=== PATIENT | male | born 1950 | race Caucasian/White ===

== ENCOUNTER 2020-09-16 14:15 | Inpatient (IN) ==
[~2020-09-16 14:15] MED LIST: ACETAMINOPHEN 325 MG TABLET PO PRN; ALUMINUM/MAGNES/SIMETH MAX STR 30 ML UDCUP PO PRN; DEXTROSE 50% 25 GM/50 ML VIAL IV PRN; DOCUSATE SODIUM 100 MG CAPSULE PO PRN; GLUCAGON 1 MG VIAL IM PRN; HEPARIN 5,000 UNIT/1 ML VIAL ONE; HEPARIN/NACL 0.9% 2 UNITS/ML 500 ML IV ONE; LIDOCAINE 1% 20 ML VIAL ONE; MAGNESIUM SULF RIDER 2 GM in PREMIX 1 EACH IV PRN; MAGNESIUM SULF RIDER 4 GM in PREMIX 1 EACH IV PRN; MIDAZOLAM 2 MG/2 ML VIAL ONE; MORPHINE 4 MG/1 ML VIAL IV PRN; NITROGLYCERIN DRIP 50 MG/250 ML BOTTLE IV ONE; POTASSIUM CHLORIDE 20 MEQ TABLET PO PRN; VERAPAMIL 5 MG/2 ML VIAL ONE; ZALEPLON 5 MG CAPSULE PO PRN; diphenhydrAMINE CAP 25 MG CAPSULE PO PRN; fentaNYL 100 MCG/2 ML VIAL ONE; hydrALAZINE 20 MG/1 ML VIAL IV PRN
[2020-09-16] MEDS ORDERED: HEPARIN 5,000 UNIT/1 ML VIAL ONE (14:28)
[2020-09-16] MEDS ORDERED: TIROFIBAN 5,000 MCG/100 ML PREMIX IV ONE (14:32)
[2020-09-16] MEDS ORDERED: MIDAZOLAM 2 MG/2 ML VIAL ONE (14:34)
[2020-09-16] MEDS ORDERED: TICAGRELOR 90 MG TABLET ONE (14:59)
[2020-09-16] MEDS ORDERED: oxyCODONE/ACETAMINOPHEN 5-325 MG TABLET PO PRN (15:17)
[2020-09-16] MEDS ORDERED: DEXTROSE 50% 25 GM/50 ML VIAL IV PRN (15:18)
[2020-09-16] MEDS ORDERED: GLUCAGON 1 MG VIAL IM PRN (15:18)
[2020-09-16] MEDS: ONDANSETRON 4 MG/2 ML VIAL IV PRN ×2 (16:14→21:04)
[2020-09-16] MEDS: INSULIN REGULAR 100 UNIT/ML SUBCUT SCH ×2 (16:18→20:47)
[2020-09-16 16:26] LABS: Bilirubin,Urine Negative (Negative); Blood, Urine Negative (Negative); Glucose,Urine (UA) >=500 mg/dL (Negative); Ketones,Urine 80 mg/dL (Negative); Mucus,Urine Occasional /LPF (Occasional); Nitrite,Urine Negative (Negative); Protein,Urine Negative; RBC,Urine 1 /HPF (0-4); Squamous Epithelial Cell,Urine Occasional /HPF (0-10); Urine Appearance CLEAR (Clear); Urine Color Yellow (Yellow); Urine Urobilinogen < 2.0 EU/DL (0.2-1.0); WBC,Urine 2 /HPF (0-6)
[2020-09-16 17:58] LABS: Basophils % 0.1 % (0.0-0.8); Eosinophils % 0.1 % (0.00-10.9); Hematocrit 45.1 VOL% (42.0-52.0); Immature Granulocytes % 0.7 %; Immature Granulocytes Absolute 0.05 #; Lymphocytes # 1.2 10*3/uL (1.4-4.0); Lymphocytes % 15.3 % (21.2-54.2); Mean Corpuscular HGB Conc 35.5 GM/DL (32-36); Mean Platelet Volume 9.9 FL (9.6-12.0); Monocytes % 3.8 % (1.7-12.7); Platelet Count 248 T/CUMM (130-400); Red Blood Count 5.01 MC/CUMM (3.8-5.5); Red Cell Distribution Width 12.1 % (9.3-17.3); White Blood Count 7.7 T/CUMM (4-12)
[2020-09-16 18:17] LABS: Albumin 3.5 G/DL (3.4-5.0); Bilirubin,Total 0.5 MG/DL (0.2-1.0); Calcium 8.9 MG/DL (8.5-10.1); Osmolality,Calculated 282.7 MOS/KG (273-304); Total Protein 7.1 G/DL (6.4-8.3)
[2020-09-16] MEDS: carvediloL 3.125 MG TABLET PO SCH (20:46)
[2020-09-16] MEDS: TICAGRELOR 90 MG TABLET PO SCH (20:46)
[2020-09-16] MEDS: ROSUVASTATIN 20 MG TABLET PO SCH (20:46)
[2020-09-16] MEDS ORDERED: ROSUVASTATIN 20 MG TABLET PO SCH (21:00)
[2020-09-17 04:00] LABS: Basophils % 0.1 % (0.0-0.8); Eosinophils # 0.1 10*3/uL (0.0-0.87); Eosinophils % 0.6 % (0.00-10.9); Hematocrit 41.1 VOL% (42.0-52.0); Hemoglobin 14.4 GM/DL (14.0-18.0); Immature Granulocytes % 0.5 %; Immature Granulocytes Absolute 0.04 #; Lymphocytes # 2.1 10*3/uL (1.4-4.0); Lymphocytes % 24.9 % (21.2-54.2); Mean Corpuscular Volume 90.5 FL (87-102); Mean Platelet Volume 9.9 FL (9.6-12.0); Monocytes % 8.2 % (1.7-12.7); Neutrophils % 65.7 % (38.7-73.9); Platelet Count 239 T/CUMM (130-400); Red Blood Count 4.54 MC/CUMM (3.8-5.5); White Blood Count 8.6 T/CUMM (4-12)
[2020-09-17 04:30] LABS: Albumin 3.1 G/DL (3.4-5.0); Bilirubin,Total 1.6 MG/DL (0.2-1.0); Osmolality,Calculated 280.7 MOS/KG (273-304); Risk Ratio 5.68; Thyroid Stimulating Hormone 0.522 uIU/ml (0.358-3.74); Total Protein 6.7 G/DL (6.4-8.3); VLDL CHOLESTEROL 38.4 MG/DL
[2020-09-17] MEDS ORDERED: HEPARIN/NACL 0.9% 2 UNITS/ML 500 ML IV ONE (07:32)
[2020-09-17] MEDS: INSULIN REGULAR 100 UNIT/ML SUBCUT SCH ×4 (08:50→20:33)
[2020-09-17] MEDS: PANTOPRAZOLE 40 MG TABLET PO SCH (08:52)
[2020-09-17] MEDS: ASPIRIN EC 81 MG TABLET PO SCH (08:52)
[2020-09-17] MEDS: TICAGRELOR 90 MG TABLET PO SCH ×2 (08:52→20:34)
[2020-09-17] MEDS: LOSARTAN 25 MG TABLET PO SCH (08:52)
[2020-09-17] MEDS: carvediloL 3.125 MG TABLET PO SCH ×2 (08:53→20:33)
[2020-09-17] MEDS ORDERED: ENOXAPARIN 40 MG/0.4 ML SYRINGE SUBCUT SCH (11:00)
[2020-09-17] MEDS ORDERED: INFLUENZA VIRUS VACCINE 0.5 ML SYRINGE IM ONE (12:00)
[2020-09-17] MEDS ORDERED: PNEUMOCOCCAL VACCINE (13 VALENT) 0.5 ML SYRINGE IM ONE (12:00)
[2020-09-17] MEDS: ROSUVASTATIN 20 MG TABLET PO SCH (20:33)
[2020-09-18 04:47] LABS: Basophils % 0.4 % (0.0-0.8); Eosinophils # 0.1 10*3/uL (0.0-0.87); Eosinophils % 1.6 % (0.00-10.9); Hematocrit 41.4 VOL% (42.0-52.0); Hemoglobin 14.1 GM/DL (14.0-18.0); Immature Granulocytes % 0.4 %; Immature Granulocytes Absolute 0.03 #; Mean Corpuscular HGB Conc 34.1 GM/DL (32-36); Mean Corpuscular Volume 91.6 FL (87-102); Mean Platelet Volume 10.1 FL (9.6-12.0); Monocytes % 10.7 % (1.7-12.7); Neutrophils % 59.9 % (38.7-73.9); Platelet Count 240 T/CUMM (130-400); Red Blood Count 4.52 MC/CUMM (3.8-5.5); Red Cell Distribution Width 11.9 % (9.3-17.3); White Blood Count 7.6 T/CUMM (4-12)
[2020-09-18 05:05] LABS: Calcium 8.9 MG/DL (8.5-10.1); Osmolality,Calculated 283.4 MOS/KG (273-304)
[2020-09-18] MEDS: INSULIN REGULAR 100 UNIT/ML SUBCUT SCH (08:14)
[2020-09-18] MEDS: PANTOPRAZOLE 40 MG TABLET PO SCH (08:14)
[2020-09-18] MEDS: carvediloL 3.125 MG TABLET PO SCH (08:14)
[2020-09-18] MEDS: LOSARTAN 25 MG TABLET PO SCH (08:14)
[2020-09-18] MEDS: TICAGRELOR 90 MG TABLET PO SCH (08:14)
[2020-09-18] MEDS: ASPIRIN EC 81 MG TABLET PO SCH (08:14)
== END 2020-09-18 09:25 | disposition home or self-care (01) | DRG 247 ==
LOC: N.CC 14:15
PROVIDERS: ADMIT Internal Medicine Cardiovascular Disease; ATTEND Internal Medicine Cardiovascular Disease
PROC: CLCCHCL (ICD-10-PCS; 2020-09-16 14:45)

== ENCOUNTER 2022-09-25 13:43 | Inpatient (IN) ==
[2022-09-25] MEDS ORDERED: SODIUM CHLORIDE 0.9% 1,000 ML IV STA ×2 (14:23→16:40)
[2022-09-25 15:09] LABS: Basophils % 0.2 % (0.0-0.8); Hematocrit 41.7 VOL% (42.0-52.0); Hemoglobin 14.3 GM/DL (14.0-18.0); Immature Granulocytes % 0.6 %; Immature Granulocytes Absolute 0.04 #; Lymphocytes # 0.7 10*3/uL (1.4-4.0); Lymphocytes % 9.8 % (21.2-54.2); Mean Corpuscular HGB Conc 34.3 GM/DL (32-36); Mean Corpuscular Volume 92.5 FL (87-102); Mean Platelet Volume 9.7 FL (9.6-12.0); Monocytes # 0.6 10*3/uL (0.11-0.8); Monocytes % 8.3 % (1.7-12.7); Neutrophils % 81.1 % (38.7-73.9); Platelet Count 188 T/CUMM (130-400); Red Blood Count 4.51 MC/CUMM (3.8-5.5); Red Cell Distribution Width 12.8 % (9.3-17.3); White Blood Count 6.6 T/CUMM (4-12)
[2022-09-25 15:14] LABS: Arterial Base Excess iSTAT -14 MMOL/L (-2.5-2.5); Arterial Bicarbonate iSTAT 9.4 MMOL/L (20-26); Arterial O2 Saturation iSTAT 97 % (95-100); Arterial PCO2 iSTAT 17 MM HG (35-48); Arterial PO2 iSTAT 88 MM HG (80-95); Arterial Total CO2 iSTAT 10 MMO/L (23-27); Arterial pH iSTAT 7.349 (7.35-7.45)
[2022-09-25 15:18] LABS: PT Patient Result 11.5 SECS (10.1-12.1)
[2022-09-25 15:30] LABS: Albumin 3.1 G/DL (3.4-5.0); Bilirubin,Total 0.9 MG/DL (0.20-1.00); Calcium 9.2 MG/DL (8.5-10.1); Osmolality,Calculated 295.5 MOS/KG (273-304); Potassium 4.7 MMOL/L (3.5-5.1)
[2022-09-25 16:09] LABS: Band Neutrophils 30 % (0-10); Lymphocytes 8 % (20-55); Platelet Estimate Normal; Total Cells Counted 100
[2022-09-25] MEDS ORDERED: PIPERACILLIN/TAZOBACTAM 3,375 MG in SODIUM CHLORIDE 0.9% 100 ML IV STA (17:01)
[2022-09-25] MEDS ORDERED: VANCOMYCIN INJ 1,000 MG in SODIUM CHLORIDE 0.9% 250 ML IV STA (17:01)
[2022-09-25] MEDS ORDERED: ETOMIDATE 20 MG/10 ML VIAL IV STA (17:02)
[2022-09-25] MEDS ORDERED: ROCURONIUM 100 MG/10 ML VIAL IV STA (17:02)
[2022-09-25] MEDS ORDERED: LACTATED RINGERS 1,000 ML IV ONE ×2 (17:08→21:40)
[2022-09-25] MEDS ORDERED: ROCURONIUM 50 MG/5 ML VIAL IV ONE (17:44)
[2022-09-25] MEDS ORDERED: propofoL 200 MG/20 ML VIAL IV ONE (17:44)
[2022-09-25] MEDS ORDERED: LIDOCAINE 2% 5 ML VIAL ONE (17:44)
[2022-09-25] MEDS ORDERED: SEVOFLURANE 1 UNIT/15 MINUTE INH ONE ×5 (17:44→19:19)
[2022-09-25] MEDS ORDERED: SUCCINYLCHOLINE 200 MG/10 ML VIAL ONE (17:44)
[2022-09-25] MEDS ORDERED: fentaNYL 100 MCG/2 ML VIAL ONE (17:45)
[2022-09-25] MEDS ORDERED: MIDAZOLAM 2 MG/2 ML VIAL ONE ×2 (17:45→19:20)
[2022-09-25 18:14] LABS: Arterial Base Excess iSTAT -13 MMOL/L (-2.5-2.5); Arterial Bicarbonate iSTAT 15.6 MMOL/L (20-26); Arterial O2 Saturation iSTAT 100 % (95-100); Arterial PCO2 iSTAT 46 MM HG (35-48); Arterial PO2 iSTAT 335 MM HG (80-95); Arterial Total CO2 iSTAT 17 MMO/L (23-27); Arterial pH iSTAT 7.138 (7.35-7.45)
[2022-09-25] MEDS ORDERED: ALBUMIN 5% 12.5 GM/250 ML VIAL IV ONE (18:37)
[2022-09-25] MEDS ORDERED: LABETALOL 20 MG/4 ML SYRINGE IV ONE (18:50)
[2022-09-25] MEDS ORDERED: LACTATED RINGERS 1,000 ML IV SCH (19:30)
[2022-09-25] MEDS ORDERED: ONDANSETRON 4 MG/2 ML VIAL IV PRN (19:30)
[2022-09-25] MEDS: MIDAZOLAM DRIP 100 MG/100 ML PREMIX IV PRN (19:50)
[2022-09-25 20:18] LABS: Albumin 2.4 G/DL (3.4-5.0); Bilirubin,Total 0.9 MG/DL (0.20-1.00); Calcium 8.3 MG/DL (8.5-10.1); Potassium 4.8 MMOL/L (3.5-5.1)
[2022-09-25 20:38] LABS: Arterial Base Excess iSTAT -8 MMOL/L (-2.5-2.5); Arterial Bicarbonate iSTAT 19.9 MMOL/L (20-26); Arterial O2 Saturation iSTAT 100 % (95-100); Arterial PCO2 iSTAT 49 MM HG (35-48); Arterial PO2 iSTAT 322 MM HG (80-95); Arterial Total CO2 iSTAT 21 MMO/L (23-27); Arterial pH iSTAT 7.213 (7.35-7.45)
[2022-09-25 21:00] LABS: Basophils % 0.6 % (0.0-0.8); Hematocrit 40.8 VOL% (42.0-52.0); Hemoglobin 13.6 GM/DL (14.0-18.0); Immature Granulocytes % 0.1 %; Immature Granulocytes Absolute 0.01 #; Lymphocytes % 14.3 % (21.2-54.2); Mean Corpuscular HGB Conc 33.3 GM/DL (32-36); Mean Corpuscular Volume 95.8 FL (87-102); Mean Platelet Volume 10.3 FL (9.6-12.0); Monocytes # 0.4 10*3/uL (0.11-0.8); Monocytes % 6.4 % (1.7-12.7); Neutrophils % 78.6 % (38.7-73.9); Platelet Count 120 T/CUMM (130-400); Red Blood Count 4.26 MC/CUMM (3.8-5.5); Red Cell Distribution Width 12.9 % (9.3-17.3); White Blood Count 6.7 T/CUMM (4-12)
[2022-09-25] MEDS: VANCOMYCIN INJ 1,500 MG in SODIUM CHLORIDE 0.9% 500 ML IV SCH (21:15)
[2022-09-25] MEDS ORDERED: SODIUM BICARB INJ 100 MEQ in STERILE WATER INJ 1,000 ML IV SCH (21:30)
[2022-09-25] MEDS ORDERED: INSULIN GLARGINE 100 UNIT/ML SUBCUT SCH (21:39)
[2022-09-25 21:41] LABS: Band Neutrophils 27 % (0-10); Lymphocytes 21 % (20-55); Total Cells Counted 100
[2022-09-25 21:42] LABS: Platelet Estimate Decreased
[2022-09-25] MEDS: fentaNYL INJ 1,250 MCG in SODIUM CHLORIDE 0.9% 225 ML IV PRN (22:20)
[2022-09-25] MEDS: INSULIN REGULAR 100 UNIT/ML SUBCUT SCH (22:37)
[2022-09-25 23:38] LABS: Calcium 8.3 MG/DL (8.5-10.1); Osmolality,Calculated 302.5 MOS/KG (273-304); Potassium 4.6 MMOL/L (3.5-5.1)
[2022-09-25 23:41] LABS: ABG Base Excess -8.2 MMOL/L (-2.5-2.5); ABG HCO3 17.9 MMOL/L (20-26); ABG Oxygen Saturation 99.2 % (95-100); ABG PCO2 33.4 MM HG (35-48); ABG PH 7.317 (7.35-7.45); ABG TCO2 15.3 MMOL/L (23-27)
[2022-09-26] MEDS ORDERED: INSULIN REGULAR 100 UNIT/ML SUBCUT SCH
[2022-09-26] MEDS ORDERED: INSULIN REGULAR ** CONC 500 UNIT/ML ** 3 ML VIAL SUBCUT SCH
[2022-09-26] MEDS: PIPERACILLIN/TAZOBACTAM 3,375 MG in SODIUM CHLORIDE 0.9% 100 ML IV SCH ×3 (00:20→18:27)
[2022-09-26] MEDS: INSULIN REGULAR 100 UNIT/ML SUBCUT SCH ×12 (00:21→22:08)
[2022-09-26 03:59] LABS: ABG Base Excess -2.6 MMOL/L (-2.5-2.5); ABG HCO3 22.3 MMOL/L (20-26); ABG Oxygen Saturation 99.6 % (95-100); ABG PCO2 32.1 MM HG (35-48); ABG PH 7.423 (7.35-7.45); ABG TCO2 18.6 MMOL/L (23-27)
[2022-09-26 04:02] LABS: Basophils % 0.5 % (0.0-0.8); Hematocrit 35.2 VOL% (42.0-52.0); Hemoglobin 12.4 GM/DL (14.0-18.0); Immature Granulocytes % 0.5 %; Immature Granulocytes Absolute 0.03 #; Lymphocytes # 0.8 10*3/uL (1.4-4.0); Lymphocytes % 12.4 % (21.2-54.2); Mean Corpuscular HGB Conc 35.2 GM/DL (32-36); Mean Corpuscular Volume 90.5 FL (87-102); Mean Platelet Volume 9.8 FL (9.6-12.0); Monocytes # 0.2 10*3/uL (0.11-0.8); Monocytes % 3.4 % (1.7-12.7); Neutrophils % 83.2 % (38.7-73.9); Platelet Count 161 T/CUMM (130-400); Red Blood Count 3.89 MC/CUMM (3.8-5.5); Red Cell Distribution Width 12.8 % (9.3-17.3); White Blood Count 6.5 T/CUMM (4-12)
[2022-09-26 04:04] LABS: Amorphous Crystals,Urine Few /HPF (Few); Bilirubin,Urine Large mg/dL (Negative); Blood, Urine Trace mg/dL (Negative); Glucose,Urine (UA) 500 mg/dL (Negative); Ketones,Urine 15 mg/dL (Negative); Mucus,Urine Occasional /LPF (Occasional); Nitrite,Urine Negative (Negative); Protein,Urine 30 mg/dL (Negative); Urine Appearance Turbid (Clear); Urine Color Orange (Yellow); Urine Specific Gravity 1.025 (1.001-1.035)
[2022-09-26 04:19] LABS: Barbiturates Screen,Urine Negative (Negative); Benzodiazepines Screen,Urine Positive (Negative); Cannabinoid Screen,Urine Negative (Negative); Opiate Screen,Urine Positive (Negative); Phencyclidine Screen,Urine Negative (Negative)
[2022-09-26 04:25] LABS: Albumin 2.3 G/DL (3.4-5.0); Bilirubin,Total 1.5 MG/DL (0.20-1.00); Calcium 8.4 MG/DL (8.5-10.1); Osmolality,Calculated 299.4 MOS/KG (273-304); Potassium 3.9 MMOL/L (3.5-5.1); Total Protein 5.7 G/DL (6.4-8.2)
[2022-09-26 04:27] LABS: Band Neutrophils 4 % (0-10); Lymphocytes 17 % (20-55); Platelet Estimate Adequate; Total Cells Counted 100
[2022-09-26] MEDS: LACTATED RINGERS 1,000 ML IV SCH ×3 (05:17→21:38)
[2022-09-26] MEDS: INSULIN GLARGINE 100 UNIT/ML SUBCUT SCH (07:08)
[2022-09-26] MEDS ORDERED: PANTOPRAZOLE 40 MG VIAL IV SCH (09:00)
[2022-09-26 10:12] LABS: Calcium 8.7 MG/DL (8.5-10.1); Osmolality,Calculated 293.3 MOS/KG (273-304); Potassium 3.5 MMOL/L (3.5-5.1)
[2022-09-26] MEDS: VANCOMYCIN INJ 1,500 MG in SODIUM CHLORIDE 0.9% 500 ML IV SCH ×2 (11:46→21:20)
[2022-09-26 12:23] LABS: ABG Base Excess 0.6 MMOL/L (-2.5-2.5); ABG Oxygen Saturation 98.4 % (95-100); ABG PH 7.456 (7.35-7.45); ABG TCO2 21.3 MMOL/L (23-27)
[2022-09-26] MEDS: ENOXAPARIN 40 MG/0.4 ML SYRINGE SUBCUT SCH (13:32)
[2022-09-26] MEDS: DIAZEPAM 10 MG/2 ML SYRINGE IV SCH ×2 (14:22→21:19)
[2022-09-26 20:02] LABS: Calcium 8.6 MG/DL (8.5-10.1); Potassium 3.5 MMOL/L (3.5-5.1)
[2022-09-26] MEDS: fentaNYL INJ 1,250 MCG in SODIUM CHLORIDE 0.9% 225 ML IV PRN (20:30)
[2022-09-26] MEDS: PANTOPRAZOLE 40 MG VIAL IV SCH (21:20)
[2022-09-26] MEDS: DEXTROSE 5% 1,000 ML IV SCH (21:38)
[2022-09-27] MEDS: INSULIN REGULAR 100 UNIT/ML SUBCUT SCH ×9 (00:37→20:58)
[2022-09-27] MEDS: PIPERACILLIN/TAZOBACTAM 3,375 MG in SODIUM CHLORIDE 0.9% 100 ML IV SCH ×3 (00:38→18:16)
[2022-09-27] MEDS: DIAZEPAM 10 MG/2 ML SYRINGE IV SCH ×2 (02:17→09:41)
[2022-09-27 04:02] LABS: ABG HCO3 24.5 MMOL/L (20-26); ABG Oxygen Saturation 99.3 % (95-100); ABG PCO2 33.2 MM HG (35-48); ABG PH 7.457 (7.35-7.45); ABG TCO2 21.6 MMOL/L (23-27)
[2022-09-27 04:16] LABS: Calcium 8.1 MG/DL (8.5-10.1); Osmolality,Calculated 292.8 MOS/KG (273-304); Potassium 3.7 MMOL/L (3.5-5.1)
[2022-09-27] MEDS: LACTATED RINGERS 1,000 ML IV SCH ×3 (05:33→21:37)
[2022-09-27] MEDS ORDERED: DIAZEPAM 10 MG/2 ML SYRINGE IV SCH (09:30)
[2022-09-27] MEDS: VANCOMYCIN INJ 1,500 MG in SODIUM CHLORIDE 0.9% 500 ML IV SCH ×2 (09:30→21:29)
[2022-09-27] MEDS: INSULIN GLARGINE 100 UNIT/ML SUBCUT SCH (09:39)
[2022-09-27] MEDS: PANTOPRAZOLE 40 MG VIAL IV SCH ×2 (09:54→21:30)
[2022-09-27 10:33] LABS: Basophils % 0.1 % (0.0-0.8); Eosinophils % 0.5 % (0.00-10.9); Hematocrit 25.6 VOL% (42.0-52.0); Immature Granulocytes % 1.4 %; Immature Granulocytes Absolute 0.12 #; Lymphocytes % 11.4 % (21.2-54.2); Mean Corpuscular HGB Conc 33.6 GM/DL (32-36); Mean Corpuscular Volume 94.8 FL (87-102); Monocytes # 0.4 10*3/uL (0.11-0.8); Neutrophils % 82.6 % (38.7-73.9); Platelet Count 102 T/CUMM (130-400); Red Cell Distribution Width 13.2 % (9.3-17.3); White Blood Count 8.8 T/CUMM (4-12)
[2022-09-27 10:34] LABS: Hemoglobin 8.6 GM/DL (14.0-18.0)
[2022-09-27 10:59] LABS: Band Neutrophils 3 % (0-10); Eosinophils 1 % (0-10); Lymphocytes 10 % (20-55); Total Cells Counted 100
[2022-09-27 11:00] LABS: Microcytosis 1+; Platelet Estimate Adequate
[2022-09-27 16:04] LABS: Basophils % 0.1 % (0.0-0.8); Eosinophils # 0.1 10*3/uL (0.0-0.87); Eosinophils % 0.7 % (0.00-10.9); Hematocrit 24.8 VOL% (42.0-52.0); Hemoglobin 8.4 GM/DL (14.0-18.0); Immature Granulocytes % 0.5 %; Immature Granulocytes Absolute 0.04 #; Lymphocytes # 0.9 10*3/uL (1.4-4.0); Lymphocytes % 9.8 % (21.2-54.2); Mean Corpuscular HGB Conc 33.9 GM/DL (32-36); Mean Corpuscular Volume 95.8 FL (87-102); Mean Platelet Volume 10.2 FL (9.6-12.0); Monocytes # 0.4 10*3/uL (0.11-0.8); Neutrophils % 84.9 % (38.7-73.9); Platelet Count 104 T/CUMM (130-400); Red Blood Count 2.59 MC/CUMM (3.8-5.5); Red Cell Distribution Width 13.2 % (9.3-17.3); White Blood Count 8.7 T/CUMM (4-12)
[2022-09-27] MEDS: MIDAZOLAM DRIP 100 MG/100 ML PREMIX IV PRN (16:20)
[2022-09-27 16:29] LABS: Band Neutrophils 2 % (0-10); Lymphocytes 10 % (20-55); Total Cells Counted 100
[2022-09-27 16:30] LABS: Platelet Estimate Normal
[2022-09-27] MEDS: methylPREDNISolone SOD SUC 40 MG/1 ML VIAL IV SCH (18:20)
[2022-09-27] MEDS: IPRATROPIUM 500 MCG/2.5 ML NEB RESP TX SCH (19:14)
[2022-09-27] MEDS: LEVALBUTEROL 1.25 MG/3 ML NEB RESP TX SCH (19:14)
[2022-09-27] MEDS: DEXTROSE 5% 1,000 ML IV SCH (20:57)
[2022-09-28] MEDS: IPRATROPIUM 500 MCG/2.5 ML NEB RESP TX SCH ×4 (00:03→20:05)
[2022-09-28] MEDS: LEVALBUTEROL 1.25 MG/3 ML NEB RESP TX SCH ×4 (00:03→20:05)
[2022-09-28] MEDS: fentaNYL INJ 1,250 MCG in SODIUM CHLORIDE 0.9% 225 ML IV PRN (00:20)
[2022-09-28] MEDS: INSULIN REGULAR 100 UNIT/ML SUBCUT SCH ×6 (00:46→21:18)
[2022-09-28] MEDS: PIPERACILLIN/TAZOBACTAM 3,375 MG in SODIUM CHLORIDE 0.9% 100 ML IV SCH ×3 (00:47→16:48)
[2022-09-28 03:50] LABS: ABG Base Excess -0.2 MMOL/L (-2.5-2.5); ABG HCO3 24.3 MMOL/L (20-26); ABG Oxygen Saturation 99.2 % (95-100); ABG PCO2 36.7 MM HG (35-48); ABG PH 7.421 (7.35-7.45); ABG TCO2 21.1 MMOL/L (23-27)
[2022-09-28 03:55] LABS: Basophils % 0.1 % (0.0-0.8); Hematocrit 25.2 VOL% (42.0-52.0); Immature Granulocytes % 0.8 %; Immature Granulocytes Absolute 0.06 #; Lymphocytes # 0.5 10*3/uL (1.4-4.0); Lymphocytes % 6.2 % (21.2-54.2); Mean Corpuscular HGB Conc 31.7 GM/DL (32-36); Mean Corpuscular Volume 99.2 FL (87-102); Mean Platelet Volume 10.2 FL (9.6-12.0); Monocytes # 0.2 10*3/uL (0.11-0.8); Monocytes % 2.2 % (1.7-12.7); Neutrophils % 90.7 % (38.7-73.9); Platelet Count 115 T/CUMM (130-400); Red Blood Count 2.54 MC/CUMM (3.8-5.5); Red Cell Distribution Width 13.3 % (9.3-17.3); White Blood Count 7.8 T/CUMM (4-12)
[2022-09-28 04:09] LABS: Calcium 7.7 MG/DL (8.5-10.1); Osmolality,Calculated 295.7 MOS/KG (273-304); Potassium 4.2 MMOL/L (3.5-5.1)
[2022-09-28] MEDS: methylPREDNISolone SOD SUC 40 MG/1 ML VIAL IV SCH ×2 (04:17→16:48)
[2022-09-28 04:20] LABS: Band Neutrophils 2 % (0-10); Lymphocytes 8 % (20-55); Total Cells Counted 100
[2022-09-28 04:21] LABS: Microcytosis 1+; Ovalocytes Slight
[2022-09-28 04:22] LABS: Platelet Estimate Decreased
[2022-09-28] MEDS: LACTATED RINGERS 1,000 ML IV SCH ×3 (05:35→21:19)
[2022-09-28] MEDS: PANTOPRAZOLE 40 MG VIAL IV SCH ×2 (08:32→21:18)
[2022-09-28] MEDS: VANCOMYCIN INJ 1,500 MG in SODIUM CHLORIDE 0.9% 500 ML IV SCH (08:33)
[2022-09-28] MEDS ORDERED: INSULIN GLARGINE 100 UNIT/ML SUBCUT SCH (09:00)
[2022-09-28] MEDS ORDERED: PHENYLEPHRINE DRIP 20 MG/250 ML PREMIX IV ONE (11:18)
[2022-09-28] MEDS ORDERED: MIDAZOLAM 10 MG/2 ML VIAL ONE (11:18)
[2022-09-28] MEDS ORDERED: fentaNYL 250 MCG/5 ML VIAL ONE (11:20)
[2022-09-28] MEDS ORDERED: ROCURONIUM 50 MG/5 ML VIAL IV ONE ×2 (11:20→13:13)
[2022-09-28] MEDS ORDERED: ceFAZolin 1,000 MG VIAL ONE (12:45)
[2022-09-28] MEDS ORDERED: SEVOFLURANE 1 UNIT/15 MINUTE INH ONE ×2 (13:13)
[2022-09-28] MEDS: ENOXAPARIN 40 MG/0.4 ML SYRINGE SUBCUT SCH (14:13)
[2022-09-28 17:01] LABS: Basophils % 0.2 % (0.0-0.8); Hematocrit 26.1 VOL% (42.0-52.0); Hemoglobin 8.3 GM/DL (14.0-18.0); Immature Granulocytes % 0.6 %; Immature Granulocytes Absolute 0.07 #; Lymphocytes # 0.9 10*3/uL (1.4-4.0); Lymphocytes % 7.8 % (21.2-54.2); Mean Corpuscular HGB Conc 31.8 GM/DL (32-36); Mean Corpuscular Volume 98.1 FL (87-102); Mean Platelet Volume 10.5 FL (9.6-12.0); Monocytes # 0.5 10*3/uL (0.11-0.8); Monocytes % 4.5 % (1.7-12.7); Neutrophils % 86.9 % (38.7-73.9); Platelet Count 112 T/CUMM (130-400); Red Blood Count 2.66 MC/CUMM (3.8-5.5); Red Cell Distribution Width 13.2 % (9.3-17.3)
[2022-09-28] MEDS: DEXTROSE 5% 1,000 ML IV SCH (20:37)
[2022-09-28] MEDS: ceFAZolin 2,000 MG/50 ML DUPLEX IV SCH (21:19)
[2022-09-29] MEDS: INSULIN REGULAR 100 UNIT/ML SUBCUT SCH ×7 (00:47→23:08)
[2022-09-29] MEDS: PIPERACILLIN/TAZOBACTAM 3,375 MG in SODIUM CHLORIDE 0.9% 100 ML IV SCH ×3 (00:48→16:49)
[2022-09-29] MEDS: LEVALBUTEROL 1.25 MG/3 ML NEB RESP TX SCH ×5 (01:00→23:56)
[2022-09-29] MEDS: IPRATROPIUM 500 MCG/2.5 ML NEB RESP TX SCH ×5 (01:00→23:56)
[2022-09-29 03:37] LABS: ABG Base Excess 1.3 MMOL/L (-2.5-2.5); ABG HCO3 25.5 MMOL/L (20-26); ABG Oxygen Saturation 96.7 % (95-100); ABG PCO2 36.9 MM HG (35-48); ABG PH 7.441 (7.35-7.45); ABG PO2 89.3 MM HG (80-95); ABG TCO2 21.7 MMOL/L (23-27)
[2022-09-29 03:38] LABS: Basophils % 0.1 % (0.0-0.8); Hematocrit 23.6 VOL% (42.0-52.0); Hemoglobin 7.6 GM/DL (14.0-18.0); Immature Granulocytes % 0.6 %; Immature Granulocytes Absolute 0.05 #; Lymphocytes # 0.5 10*3/uL (1.4-4.0); Lymphocytes % 6.4 % (21.2-54.2); Mean Corpuscular HGB Conc 32.2 GM/DL (32-36); Mean Corpuscular Volume 97.9 FL (87-102); Mean Platelet Volume 10.2 FL (9.6-12.0); Monocytes # 0.4 10*3/uL (0.11-0.8); Monocytes % 4.2 % (1.7-12.7); Neutrophils % 88.7 % (38.7-73.9); Platelet Count 114 T/CUMM (130-400); Red Blood Count 2.41 MC/CUMM (3.8-5.5); Red Cell Distribution Width 13.1 % (9.3-17.3); White Blood Count 8.3 T/CUMM (4-12)
[2022-09-29 03:59] LABS: Calcium 8.4 MG/DL (8.5-10.1); Osmolality,Calculated 304.3 MOS/KG (273-304); Potassium 3.8 MMOL/L (3.5-5.1)
[2022-09-29] MEDS: ceFAZolin 2,000 MG/50 ML DUPLEX IV SCH (04:15)
[2022-09-29] MEDS: methylPREDNISolone SOD SUC 40 MG/1 ML VIAL IV SCH ×2 (04:18→16:48)
[2022-09-29] MEDS: fentaNYL INJ 1,250 MCG in SODIUM CHLORIDE 0.9% 225 ML IV PRN (05:20)
[2022-09-29] MEDS: LACTATED RINGERS 1,000 ML IV SCH ×3 (05:26→20:36)
[2022-09-29] MEDS ORDERED: SODIUM CHLORIDE 0.9% 1,000 ML IV PRN (07:36)
[2022-09-29] MEDS ORDERED: FUROSEMIDE 40 MG/4 ML VIAL IV ONE (08:10)
[2022-09-29] MEDS: INSULIN GLARGINE 100 UNIT/ML SUBCUT SCH (09:09)
[2022-09-29] MEDS: PANTOPRAZOLE 40 MG VIAL IV SCH ×2 (09:09→20:21)
[2022-09-29] MEDS: ENOXAPARIN 40 MG/0.4 ML SYRINGE SUBCUT SCH (13:31)
[2022-09-29] MEDS: DEXTROSE 5% 1,000 ML IV SCH (19:45)
[2022-09-29] MEDS: HYDROmorphone 1 MG/1 ML SYRINGE IV PRN (23:45)
[2022-09-30] MEDS: MIDAZOLAM DRIP 100 MG/100 ML PREMIX IV PRN (00:05)
[2022-09-30] MEDS: PIPERACILLIN/TAZOBACTAM 3,375 MG in SODIUM CHLORIDE 0.9% 100 ML IV SCH ×3 (00:10→16:56)
[2022-09-30] MEDS: fentaNYL INJ 1,250 MCG in SODIUM CHLORIDE 0.9% 225 ML IV PRN (02:50)
[2022-09-30] MEDS: INSULIN REGULAR 100 UNIT/ML SUBCUT SCH ×5 (03:23→20:46)
[2022-09-30 04:08] LABS: ABG Base Excess 5.4 MMOL/L (-2.5-2.5); ABG HCO3 29.3 MMOL/L (20-26); ABG Oxygen Saturation 98.4 % (95-100); ABG PCO2 39.8 MM HG (35-48); ABG PH 7.476 (7.35-7.45); ABG TCO2 26.7 MMOL/L (23-27); Basophils % 0.1 % (0.0-0.8); Hematocrit 27.8 VOL% (42.0-52.0); Hemoglobin 9.1 GM/DL (14.0-18.0); Immature Granulocytes % 0.8 %; Immature Granulocytes Absolute 0.06 #; Lymphocytes # 0.9 10*3/uL (1.4-4.0); Lymphocytes % 11.5 % (21.2-54.2); Mean Corpuscular HGB Conc 32.7 GM/DL (32-36); Mean Corpuscular Volume 95.2 FL (87-102); Mean Platelet Volume 10.5 FL (9.6-12.0); Monocytes # 0.6 10*3/uL (0.11-0.8); Monocytes % 8.5 % (1.7-12.7); Neutrophils % 79.1 % (38.7-73.9); Platelet Count 146 T/CUMM (130-400); Red Blood Count 2.92 MC/CUMM (3.8-5.5); Red Cell Distribution Width 13.8 % (9.3-17.3); White Blood Count 7.4 T/CUMM (4-12)
[2022-09-30 04:20] LABS: Calcium 8.1 MG/DL (8.5-10.1); Osmolality,Calculated 298.3 MOS/KG (273-304); Potassium 3.7 MMOL/L (3.5-5.1)
[2022-09-30] MEDS: methylPREDNISolone SOD SUC 40 MG/1 ML VIAL IV SCH ×2 (05:06→16:57)
[2022-09-30] MEDS: IPRATROPIUM 500 MCG/2.5 ML NEB RESP TX SCH ×3 (07:48→19:50)
[2022-09-30] MEDS: LEVALBUTEROL 1.25 MG/3 ML NEB RESP TX SCH ×3 (07:48→19:50)
[2022-09-30] MEDS: PANTOPRAZOLE 40 MG VIAL IV SCH ×2 (08:20→20:46)
[2022-09-30] MEDS: HYDROmorphone 1 MG/1 ML SYRINGE IV PRN ×2 (08:21→15:43)
[2022-09-30] MEDS: INSULIN GLARGINE 100 UNIT/ML SUBCUT SCH (12:00)
[2022-09-30] MEDS: ENOXAPARIN 40 MG/0.4 ML SYRINGE SUBCUT SCH (15:45)
[2022-09-30] MEDS: LACTATED RINGERS 1,000 ML IV SCH (17:15)
[2022-10-01] MEDS: INSULIN REGULAR 100 UNIT/ML SUBCUT SCH ×7 (00:16→23:57)
[2022-10-01] MEDS: PIPERACILLIN/TAZOBACTAM 3,375 MG in SODIUM CHLORIDE 0.9% 100 ML IV SCH ×3 (00:17→18:10)
[2022-10-01 03:27] LABS: ABG Base Excess 6.1 MMOL/L (-2.5-2.5); ABG PCO2 34.8 MM HG (35-48); ABG PH 7.528 (7.35-7.45); ABG TCO2 26.4 MMOL/L (23-27)
[2022-10-01 03:30] LABS: Basophils % 0.1 % (0.0-0.8); Hematocrit 29.5 VOL% (42.0-52.0); Hemoglobin 9.4 GM/DL (14.0-18.0); Immature Granulocytes % 1.5 %; Immature Granulocytes Absolute 0.12 #; Lymphocytes # 1.1 10*3/uL (1.4-4.0); Lymphocytes % 13.8 % (21.2-54.2); Mean Corpuscular HGB Conc 31.9 GM/DL (32-36); Mean Corpuscular Volume 95.8 FL (87-102); Mean Platelet Volume 10.6 FL (9.6-12.0); Monocytes # 0.7 10*3/uL (0.11-0.8); Monocytes % 8.9 % (1.7-12.7); NRBC # 0.02 10*3/uL; Neutrophils % 75.7 % (38.7-73.9); Platelet Count 160 T/CUMM (130-400); Red Blood Count 3.08 MC/CUMM (3.8-5.5); White Blood Count 7.9 T/CUMM (4-12)
[2022-10-01 03:46] LABS: Calcium 7.9 MG/DL (8.5-10.1); Osmolality,Calculated 291.7 MOS/KG (273-304); Potassium 3.7 MMOL/L (3.5-5.1)
[2022-10-01] MEDS: methylPREDNISolone SOD SUC 40 MG/1 ML VIAL IV SCH ×2 (05:46→18:10)
[2022-10-01] MEDS: LEVALBUTEROL 1.25 MG/3 ML NEB RESP TX SCH ×4 (07:20→19:11)
[2022-10-01] MEDS: IPRATROPIUM 500 MCG/2.5 ML NEB RESP TX SCH ×4 (07:20→19:11)
[2022-10-01] MEDS: INSULIN GLARGINE 100 UNIT/ML SUBCUT SCH (08:31)
[2022-10-01] MEDS: FUROSEMIDE 40 MG/4 ML VIAL IV SCH (08:53)
[2022-10-01] MEDS: PANTOPRAZOLE 40 MG VIAL IV SCH ×2 (08:54→20:03)
[2022-10-01] MEDS: HYDROmorphone 1 MG/1 ML SYRINGE IV PRN (10:10)
[2022-10-01 14:34] LABS: ABG Base Excess 5.8 MMOL/L (-2.5-2.5); ABG HCO3 29.7 MMOL/L (20-26); ABG Oxygen Saturation 98.4 % (95-100); ABG PCO2 40.5 MM HG (35-48); ABG PH 7.476 (7.35-7.45); ABG TCO2 26.5 MMOL/L (23-27)
[2022-10-01] MEDS: ENOXAPARIN 40 MG/0.4 ML SYRINGE SUBCUT SCH (14:52)
[2022-10-01] MEDS: THIAMINE 200 MG/2 ML VIAL IV SCH ×2 (14:53→20:02)
[2022-10-01] MEDS: LACTATED RINGERS 1,000 ML IV SCH (14:53)
[2022-10-02] MEDS: LEVALBUTEROL 1.25 MG/3 ML NEB RESP TX SCH ×4 (02:40→19:34)
[2022-10-02 03:09] LABS: ABG Base Excess 3.6 MMOL/L (-2.5-2.5); ABG HCO3 27.7 MMOL/L (20-26); ABG Oxygen Saturation 98.7 % (95-100); ABG PCO2 34.1 MM HG (35-48); ABG PH 7.501 (7.35-7.45); ABG TCO2 23.9 MMOL/L (23-27)
[2022-10-02] MEDS: IPRATROPIUM 500 MCG/2.5 ML NEB RESP TX SCH ×4 (03:09→19:34)
[2022-10-02 03:12] LABS: Basophils % 0.1 % (0.0-0.8); Hematocrit 32.7 VOL% (42.0-52.0); Hemoglobin 10.7 GM/DL (14.0-18.0); Immature Granulocytes Absolute 0.08 #; Lymphocytes % 12.3 % (21.2-54.2); Mean Corpuscular HGB Conc 32.7 GM/DL (32-36); Mean Corpuscular Volume 94.5 FL (87-102); Mean Platelet Volume 10.6 FL (9.6-12.0); Monocytes # 0.4 10*3/uL (0.11-0.8); Monocytes % 4.4 % (1.7-12.7); Neutrophils % 82.2 % (38.7-73.9); Platelet Count 186 T/CUMM (130-400); Red Blood Count 3.46 MC/CUMM (3.8-5.5); Red Cell Distribution Width 13.5 % (9.3-17.3); White Blood Count 8.2 T/CUMM (4-12)
[2022-10-02 03:24] LABS: Calcium 7.8 MG/DL (8.5-10.1); Osmolality,Calculated 290.4 MOS/KG (273-304); Potassium 4.2 MMOL/L (3.5-5.1)
[2022-10-02 03:34] LABS: Risk Ratio 4.8; VLDL Cholesterol 30.6 MG/DL
[2022-10-02] MEDS: INSULIN REGULAR 100 UNIT/ML SUBCUT SCH ×5 (04:07→22:17)
[2022-10-02] MEDS: methylPREDNISolone SOD SUC 40 MG/1 ML VIAL IV SCH (04:07)
[2022-10-02] MEDS: PANTOPRAZOLE 40 MG VIAL IV SCH ×2 (09:53→20:36)
[2022-10-02] MEDS: THIAMINE 200 MG/2 ML VIAL IV SCH ×2 (09:53→20:36)
[2022-10-02] MEDS: FUROSEMIDE 40 MG/4 ML VIAL IV SCH (09:53)
[2022-10-02] MEDS: PIPERACILLIN/TAZOBACTAM 3,375 MG in SODIUM CHLORIDE 0.9% 100 ML IV SCH ×3 (09:54→16:55)
[2022-10-02] MEDS: ENOXAPARIN 40 MG/0.4 ML SYRINGE SUBCUT SCH (13:03)
[2022-10-02] MEDS: ASPIRIN CHEW 81 MG TABLET PO SCH (13:03)
[2022-10-02] MEDS: ATORVASTATIN 80 MG TABLET PO SCH (13:03)
[2022-10-03] MEDS: INSULIN REGULAR 100 UNIT/ML SUBCUT SCH ×6 (00:32→21:57)
[2022-10-03] MEDS: IPRATROPIUM 500 MCG/2.5 ML NEB RESP TX SCH ×4 (00:52→19:30)
[2022-10-03] MEDS: LEVALBUTEROL 1.25 MG/3 ML NEB RESP TX SCH ×3 (00:52→19:30)
[2022-10-03] MEDS: PIPERACILLIN/TAZOBACTAM 3,375 MG in SODIUM CHLORIDE 0.9% 100 ML IV SCH ×3 (01:13→21:11)
[2022-10-03 05:20] LABS: Basophils % 0.1 % (0.0-0.8); Eosinophils # 0.1 10*3/uL (0.0-0.87); Eosinophils % 0.3 % (0.00-10.9); Hematocrit 34.2 VOL% (42.0-52.0); Hemoglobin 10.8 GM/DL (14.0-18.0); Immature Granulocytes % 0.6 %; Immature Granulocytes Absolute 0.09 #; Lymphocytes # 1.3 10*3/uL (1.4-4.0); Lymphocytes % 9.2 % (21.2-54.2); Mean Corpuscular HGB Conc 31.6 GM/DL (32-36); Mean Corpuscular Volume 97.4 FL (87-102); Mean Platelet Volume 11.2 FL (9.6-12.0); Monocytes # 0.6 10*3/uL (0.11-0.8); Monocytes % 4.1 % (1.7-12.7); Neutrophils % 85.7 % (38.7-73.9); Platelet Count 256 T/CUMM (130-400); Red Blood Count 3.51 MC/CUMM (3.8-5.5); Red Cell Distribution Width 13.8 % (9.3-17.3); White Blood Count 14.5 T/CUMM (4-12)
[2022-10-03 05:47] LABS: Albumin 1.8 G/DL (3.4-5.0); Bilirubin,Total 0.9 MG/DL (0.20-1.00); Calcium 7.8 MG/DL (8.5-10.1); Osmolality,Calculated 300.8 MOS/KG (273-304); Potassium 3.7 MMOL/L (3.5-5.1); Total Protein 5.5 G/DL (6.4-8.2)
[2022-10-03] MEDS ORDERED: methylPREDNISolone SOD SUC 40 MG/1 ML VIAL IV SCH (09:00)
[2022-10-03] MEDS: ATORVASTATIN 80 MG TABLET PO SCH (11:32)
[2022-10-03] MEDS: FUROSEMIDE 40 MG/4 ML VIAL IV SCH (11:33)
[2022-10-03] MEDS: ASPIRIN CHEW 81 MG TABLET PO SCH (11:33)
[2022-10-03] MEDS: THIAMINE 200 MG/2 ML VIAL IV SCH ×2 (11:34→21:12)
[2022-10-03] MEDS: PANTOPRAZOLE 40 MG VIAL IV SCH ×2 (11:34→21:12)
[2022-10-03] MEDS: ENOXAPARIN 40 MG/0.4 ML SYRINGE SUBCUT SCH (15:03)
[2022-10-04] MEDS: INSULIN REGULAR 100 UNIT/ML SUBCUT SCH ×6 (00:23→21:26)
[2022-10-04] MEDS: IPRATROPIUM 500 MCG/2.5 ML NEB RESP TX SCH ×4 (01:00→19:19)
[2022-10-04] MEDS: LEVALBUTEROL 1.25 MG/3 ML NEB RESP TX SCH ×4 (01:00→19:19)
[2022-10-04] MEDS: PIPERACILLIN/TAZOBACTAM 3,375 MG in SODIUM CHLORIDE 0.9% 100 ML IV SCH ×3 (04:06→21:09)
[2022-10-04 06:33] LABS: Basophils % 0.1 % (0.0-0.8); Eosinophils # 0.1 10*3/uL (0.0-0.87); Eosinophils % 0.7 % (0.00-10.9); Hemoglobin 11.3 GM/DL (14.0-18.0); Immature Granulocytes % 0.8 %; Immature Granulocytes Absolute 0.12 #; Lymphocytes # 1.6 10*3/uL (1.4-4.0); Lymphocytes % 10.5 % (21.2-54.2); Mean Corpuscular HGB Conc 32.3 GM/DL (32-36); Mean Corpuscular Volume 98.3 FL (87-102); Mean Platelet Volume 11.4 FL (9.6-12.0); Monocytes # 0.6 10*3/uL (0.11-0.8); Neutrophils % 83.9 % (38.7-73.9); Platelet Count 322 T/CUMM (130-400); Red Blood Count 3.56 MC/CUMM (3.8-5.5); Red Cell Distribution Width 13.9 % (9.3-17.3); White Blood Count 15.3 T/CUMM (4-12)
[2022-10-04 06:59] LABS: Bilirubin,Total 0.8 MG/DL (0.20-1.00); Calcium 7.8 MG/DL (8.5-10.1); Osmolality,Calculated 292.1 MOS/KG (273-304); Potassium 3.5 MMOL/L (3.5-5.1); Total Protein 5.9 G/DL (6.4-8.2)
[2022-10-04] MEDS: ASPIRIN CHEW 81 MG TABLET PO SCH (08:00)
[2022-10-04] MEDS: ATORVASTATIN 80 MG TABLET PO SCH (08:01)
[2022-10-04] MEDS: THIAMINE 200 MG/2 ML VIAL IV SCH ×2 (08:03→21:11)
[2022-10-04] MEDS: methylPREDNISolone SOD SUC 40 MG/1 ML VIAL IV SCH (08:04)
[2022-10-04] MEDS: FUROSEMIDE 40 MG/4 ML VIAL IV SCH (08:04)
[2022-10-04] MEDS: PANTOPRAZOLE 40 MG VIAL IV SCH ×2 (08:05→21:10)
[2022-10-04] MEDS ORDERED: propofoL 200 MG/20 ML VIAL IV ONE (13:13)
[2022-10-04] MEDS ORDERED: LIDOCAINE 2% 5 ML VIAL ONE (13:13)
[2022-10-04] MEDS: ENOXAPARIN 40 MG/0.4 ML SYRINGE SUBCUT SCH (15:18)
[2022-10-05] MEDS: IPRATROPIUM 500 MCG/2.5 ML NEB RESP TX SCH ×4 (00:14→19:28)
[2022-10-05] MEDS: LEVALBUTEROL 1.25 MG/3 ML NEB RESP TX SCH ×4 (00:14→19:28)
[2022-10-05] MEDS: INSULIN REGULAR 100 UNIT/ML SUBCUT SCH ×6 (02:05→21:42)
[2022-10-05] MEDS: PIPERACILLIN/TAZOBACTAM 3,375 MG in SODIUM CHLORIDE 0.9% 100 ML IV SCH ×3 (04:26→21:34)
[2022-10-05 05:39] LABS: Basophils % 0.1 % (0.0-0.8); Eosinophils # 0.1 10*3/uL (0.0-0.87); Eosinophils % 0.5 % (0.00-10.9); Hematocrit 33.7 VOL% (42.0-52.0); Hemoglobin 10.8 GM/DL (14.0-18.0); Immature Granulocytes % 0.9 %; Immature Granulocytes Absolute 0.13 #; Lymphocytes # 1.6 10*3/uL (1.4-4.0); Lymphocytes % 11.2 % (21.2-54.2); Mean Corpuscular Volume 96.6 FL (87-102); Mean Platelet Volume 11.5 FL (9.6-12.0); Monocytes # 0.5 10*3/uL (0.11-0.8); Monocytes % 3.6 % (1.7-12.7); Neutrophils % 83.7 % (38.7-73.9); Platelet Count 356 T/CUMM (130-400); Red Blood Count 3.49 MC/CUMM (3.8-5.5); Red Cell Distribution Width 13.9 % (9.3-17.3); White Blood Count 14.6 T/CUMM (4-12)
[2022-10-05 06:07] LABS: Osmolality,Calculated 299.8 MOS/KG (273-304); Potassium 3.9 MMOL/L (3.5-5.1)
[2022-10-05 06:13] LABS: Bilirubin,Total 0.6 MG/DL (0.20-1.00); Calcium 7.9 MG/DL (8.5-10.1); Osmolality,Calculated 297.1 MOS/KG (273-304); Potassium 3.7 MMOL/L (3.5-5.1); Total Protein 5.8 G/DL (6.4-8.2)
[2022-10-05] MEDS: ATORVASTATIN 80 MG TABLET PO SCH (09:01)
[2022-10-05] MEDS: ASPIRIN CHEW 81 MG TABLET PO SCH (09:01)
[2022-10-05] MEDS: methylPREDNISolone SOD SUC 40 MG/1 ML VIAL IV SCH (09:01)
[2022-10-05] MEDS: FUROSEMIDE 40 MG/4 ML VIAL IV SCH (09:02)
[2022-10-05] MEDS: PANTOPRAZOLE 40 MG VIAL IV SCH ×2 (09:02→21:35)
[2022-10-05] MEDS: THIAMINE 200 MG/2 ML VIAL IV SCH ×2 (09:02→21:35)
[2022-10-05] MEDS: ENOXAPARIN 40 MG/0.4 ML SYRINGE SUBCUT SCH (13:39)
[2022-10-05] MEDS ORDERED: ZINC OXIDE PASTE 113 GM TUBE TOP PRN (14:37)
[2022-10-06] MEDS: LEVALBUTEROL 1.25 MG/3 ML NEB RESP TX SCH ×5 (00:30→19:37)
[2022-10-06] MEDS: IPRATROPIUM 500 MCG/2.5 ML NEB RESP TX SCH ×4 (00:30→19:37)
[2022-10-06] MEDS: INSULIN REGULAR 100 UNIT/ML SUBCUT SCH ×6 (01:31→20:54)
[2022-10-06 04:59] LABS: Basophils % 0.1 % (0.0-0.8); Eosinophils # 0.1 10*3/uL (0.0-0.87); Eosinophils % 0.8 % (0.00-10.9); Hematocrit 33.1 VOL% (42.0-52.0); Hemoglobin 10.4 GM/DL (14.0-18.0); Immature Granulocytes % 0.6 %; Immature Granulocytes Absolute 0.08 #; Lymphocytes # 1.7 10*3/uL (1.4-4.0); Lymphocytes % 12.1 % (21.2-54.2); Mean Corpuscular HGB Conc 31.4 GM/DL (32-36); Mean Corpuscular Volume 99.1 FL (87-102); Mean Platelet Volume 11.3 FL (9.6-12.0); Monocytes # 0.6 10*3/uL (0.11-0.8); Neutrophils % 82.4 % (38.7-73.9); Platelet Count 353 T/CUMM (130-400); Red Blood Count 3.34 MC/CUMM (3.8-5.5); Red Cell Distribution Width 13.9 % (9.3-17.3); White Blood Count 14.1 T/CUMM (4-12)
[2022-10-06] MEDS: PIPERACILLIN/TAZOBACTAM 3,375 MG in SODIUM CHLORIDE 0.9% 100 ML IV SCH ×3 (05:15→20:55)
[2022-10-06 05:22] LABS: Albumin 1.9 G/DL (3.4-5.0); Bilirubin,Total 0.6 MG/DL (0.20-1.00); Calcium 7.7 MG/DL (8.5-10.1); Osmolality,Calculated 294.1 MOS/KG (273-304); Potassium 3.6 MMOL/L (3.5-5.1); Total Protein 5.7 G/DL (6.4-8.2)
[2022-10-06] MEDS: methylPREDNISolone SOD SUC 40 MG/1 ML VIAL IV SCH (09:10)
[2022-10-06] MEDS: PANTOPRAZOLE 40 MG VIAL IV SCH ×2 (09:11→20:55)
[2022-10-06] MEDS: THIAMINE 200 MG/2 ML VIAL IV SCH ×2 (09:11→20:57)
[2022-10-06] MEDS: ATORVASTATIN 80 MG TABLET PO SCH (10:32)
[2022-10-06] MEDS: ASPIRIN CHEW 81 MG TABLET PO SCH (10:32)
[2022-10-06] MEDS: ENOXAPARIN 40 MG/0.4 ML SYRINGE SUBCUT SCH (13:43)
[2022-10-07] MEDS: INSULIN REGULAR 100 UNIT/ML SUBCUT SCH ×6 (00:09→21:03)
[2022-10-07] MEDS: IPRATROPIUM 500 MCG/2.5 ML NEB RESP TX SCH ×4 (01:05→19:40)
[2022-10-07] MEDS: LEVALBUTEROL 1.25 MG/3 ML NEB RESP TX SCH ×4 (01:05→19:40)
[2022-10-07] MEDS: PIPERACILLIN/TAZOBACTAM 3,375 MG in SODIUM CHLORIDE 0.9% 100 ML IV SCH ×3 (03:14→21:06)
[2022-10-07] MEDS: MORPHINE 2 MG/1 ML SYRINGE IV PRN ×2 (04:13→13:25)
[2022-10-07 06:33] LABS: Basophils % 0.1 % (0.0-0.8); Eosinophils # 0.1 10*3/uL (0.0-0.87); Eosinophils % 0.8 % (0.00-10.9); Hematocrit 32.5 VOL% (42.0-52.0); Hemoglobin 10.2 GM/DL (14.0-18.0); Immature Granulocytes % 0.6 %; Immature Granulocytes Absolute 0.09 #; Lymphocytes # 1.6 10*3/uL (1.4-4.0); Lymphocytes % 11.3 % (21.2-54.2); Mean Corpuscular HGB Conc 31.4 GM/DL (32-36); Mean Corpuscular Volume 98.5 FL (87-102); Monocytes # 0.6 10*3/uL (0.11-0.8); Monocytes % 4.3 % (1.7-12.7); Neutrophils % 82.9 % (38.7-73.9); Platelet Count 378 T/CUMM (130-400); Red Cell Distribution Width 13.9 % (9.3-17.3)
[2022-10-07 06:50] LABS: Bilirubin,Total 0.6 MG/DL (0.20-1.00); Osmolality,Calculated 299.6 MOS/KG (273-304); Total Protein 5.8 G/DL (6.4-8.2)
[2022-10-07] MEDS: methylPREDNISolone SOD SUC 40 MG/1 ML VIAL IV SCH (09:08)
[2022-10-07] MEDS: THIAMINE 200 MG/2 ML VIAL IV SCH ×2 (09:08→21:04)
[2022-10-07] MEDS: INSULIN GLARGINE 100 UNIT/ML SUBCUT SCH (09:09)
[2022-10-07] MEDS: PANTOPRAZOLE 40 MG VIAL IV SCH ×2 (09:09→21:05)
[2022-10-07] MEDS: ASPIRIN CHEW 81 MG TABLET PO SCH (09:19)
[2022-10-07] MEDS: ATORVASTATIN 80 MG TABLET PO SCH (09:20)
[2022-10-07] MEDS: ENOXAPARIN 40 MG/0.4 ML SYRINGE SUBCUT SCH (13:50)
[2022-10-08] MEDS: LEVALBUTEROL 1.25 MG/3 ML NEB RESP TX SCH ×4 (00:30→19:12)
[2022-10-08] MEDS: IPRATROPIUM 500 MCG/2.5 ML NEB RESP TX SCH ×4 (00:30→19:12)
[2022-10-08] MEDS: INSULIN REGULAR 100 UNIT/ML SUBCUT SCH ×6 (01:00→21:58)
[2022-10-08] MEDS: PIPERACILLIN/TAZOBACTAM 3,375 MG in SODIUM CHLORIDE 0.9% 100 ML IV SCH ×3 (04:16→21:53)
[2022-10-08 06:18] LABS: Basophils % 0.1 % (0.0-0.8); Eosinophils # 0.1 10*3/uL (0.0-0.87); Eosinophils % 0.7 % (0.00-10.9); Hematocrit 33.9 VOL% (42.0-52.0); Hemoglobin 10.5 GM/DL (14.0-18.0); Immature Granulocytes % 0.5 %; Immature Granulocytes Absolute 0.07 #; Lymphocytes # 1.4 10*3/uL (1.4-4.0); Mean Corpuscular Volume 101.2 FL (87-102); Mean Platelet Volume 10.9 FL (9.6-12.0); Monocytes # 0.6 10*3/uL (0.11-0.8); Monocytes % 4.5 % (1.7-12.7); Neutrophils % 84.2 % (38.7-73.9); Platelet Count 333 T/CUMM (130-400); Red Blood Count 3.35 MC/CUMM (3.8-5.5); Red Cell Distribution Width 14.1 % (9.3-17.3); White Blood Count 13.5 T/CUMM (4-12)
[2022-10-08 06:40] LABS: Albumin 2.2 G/DL (3.4-5.0); Bilirubin,Total 0.7 MG/DL (0.20-1.00); Calcium 8.2 MG/DL (8.5-10.1); Osmolality,Calculated 297.7 MOS/KG (273-304); Potassium 3.9 MMOL/L (3.5-5.1); Total Protein 5.9 G/DL (6.4-8.2)
[2022-10-08] MEDS: methylPREDNISolone SOD SUC 40 MG/1 ML VIAL IV SCH (10:05)
[2022-10-08] MEDS: INSULIN GLARGINE 100 UNIT/ML SUBCUT SCH (10:05)
[2022-10-08] MEDS: PANTOPRAZOLE 40 MG VIAL IV SCH ×2 (10:08→21:00)
[2022-10-08] MEDS: THIAMINE 200 MG/2 ML VIAL IV SCH (10:10)
[2022-10-08] MEDS: ATORVASTATIN 80 MG TABLET PO SCH (10:15)
[2022-10-08] MEDS: ASPIRIN CHEW 81 MG TABLET PO SCH (10:15)
[2022-10-08 12:59] LABS: Mucus,Urine Occasional /LPF (Occasional)
[2022-10-08 13:00] LABS: Bilirubin,Urine Negative (Negative); Blood, Urine Trace mg/dL (Negative); Glucose,Urine (UA) >=1000 mg/dL (Negative); Ketones,Urine Negative (Negative); Nitrite,Urine Negative (Negative); Protein,Urine 30 mg/dL (Negative); Urine Appearance Clear (Clear); Urine Color Yellow (Yellow); Urine Specific Gravity 1.025 (1.001-1.035); Urine Urobilinogen 0.2 eU/dL (<2.0)
[2022-10-08] MEDS: ENOXAPARIN 40 MG/0.4 ML SYRINGE SUBCUT SCH (15:09)
[2022-10-09] MEDS: INSULIN REGULAR 100 UNIT/ML SUBCUT SCH ×6 (00:38→21:47)
[2022-10-09] MEDS: LEVALBUTEROL 1.25 MG/3 ML NEB RESP TX SCH ×2 (00:56→07:04)
[2022-10-09] MEDS: IPRATROPIUM 500 MCG/2.5 ML NEB RESP TX SCH ×2 (00:56→07:04)
[2022-10-09] MEDS: PIPERACILLIN/TAZOBACTAM 3,375 MG in SODIUM CHLORIDE 0.9% 100 ML IV SCH ×2 (05:11→11:30)
[2022-10-09 05:12] LABS: Basophils % 0.1 % (0.0-0.8); Eosinophils # 0.1 10*3/uL (0.0-0.87); Eosinophils % 0.7 % (0.00-10.9); Hemoglobin 9.7 GM/DL (14.0-18.0); Immature Granulocytes % 0.5 %; Immature Granulocytes Absolute 0.05 #; Lymphocytes # 1.4 10*3/uL (1.4-4.0); Lymphocytes % 13.5 % (21.2-54.2); Mean Corpuscular HGB Conc 31.3 GM/DL (32-36); Mean Platelet Volume 10.8 FL (9.6-12.0); Monocytes # 0.6 10*3/uL (0.11-0.8); Neutrophils % 79.2 % (38.7-73.9); Platelet Count 316 T/CUMM (130-400); Red Blood Count 3.13 MC/CUMM (3.8-5.5); Red Cell Distribution Width 14.6 % (9.3-17.3); White Blood Count 10.1 T/CUMM (4-12)
[2022-10-09 05:32] LABS: Albumin 2.1 G/DL (3.4-5.0); Bilirubin,Total 0.4 MG/DL (0.20-1.00); Calcium 7.7 MG/DL (8.5-10.1); Osmolality,Calculated 296.1 MOS/KG (273-304); Potassium 4.1 MMOL/L (3.5-5.1); Total Protein 5.7 G/DL (6.4-8.2)
[2022-10-09] MEDS: INSULIN GLARGINE 100 UNIT/ML SUBCUT SCH (10:12)
[2022-10-09] MEDS: PANTOPRAZOLE 40 MG VIAL IV SCH ×2 (10:12→21:47)
[2022-10-09] MEDS: ACETAMINOPHEN 325 MG TABLET PO PRN (10:13)
[2022-10-09] MEDS: ATORVASTATIN 80 MG TABLET PO SCH (10:13)
[2022-10-09] MEDS: ASPIRIN CHEW 81 MG TABLET PO SCH (10:13)
[2022-10-09] MEDS: methylPREDNISolone SOD SUC 40 MG/1 ML VIAL IV SCH (11:30)
[2022-10-09] MEDS: ALBUTEROL/IPRATROPIUM 3 ML NEB RESP TX SCH ×2 (12:33→19:17)
[2022-10-09] MEDS: ENOXAPARIN 40 MG/0.4 ML SYRINGE SUBCUT SCH (14:03)
[2022-10-09] MEDS: MEROPENEM 500 MG in SODIUM CHLORIDE 0.9% 100 ML IV SCH ×2 (14:03→21:46)
[2022-10-09] MEDS: MORPHINE 2 MG/1 ML SYRINGE IV PRN (14:44)
[2022-10-10] MEDS: ALBUTEROL/IPRATROPIUM 3 ML NEB RESP TX SCH ×4 (01:06→19:28)
[2022-10-10] MEDS: MEROPENEM 500 MG in SODIUM CHLORIDE 0.9% 100 ML IV SCH ×4 (01:27→20:42)
[2022-10-10] MEDS: INSULIN REGULAR 100 UNIT/ML SUBCUT SCH ×6 (01:32→20:41)
[2022-10-10 05:16] LABS: Basophils % 0.1 % (0.0-0.8); Eosinophils % 0.4 % (0.00-10.9); Hematocrit 32.6 VOL% (42.0-52.0); Hemoglobin 10.4 GM/DL (14.0-18.0); Immature Granulocytes % 0.5 %; Immature Granulocytes Absolute 0.05 #; Lymphocytes # 1.9 10*3/uL (1.4-4.0); Lymphocytes % 18.6 % (21.2-54.2); Mean Corpuscular HGB Conc 31.9 GM/DL (32-36); Mean Platelet Volume 10.5 FL (9.6-12.0); Monocytes # 0.7 10*3/uL (0.11-0.8); Monocytes % 6.7 % (1.7-12.7); Neutrophils % 73.7 % (38.7-73.9); Platelet Count 300 T/CUMM (130-400); Red Blood Count 3.36 MC/CUMM (3.8-5.5); Red Cell Distribution Width 14.8 % (9.3-17.3); White Blood Count 10.2 T/CUMM (4-12)
[2022-10-10 05:28] LABS: Calcium 8.2 MG/DL (8.5-10.1); Osmolality,Calculated 290.4 MOS/KG (273-304)
[2022-10-10] MEDS: ATORVASTATIN 80 MG TABLET PO SCH (08:30)
[2022-10-10] MEDS: ASPIRIN CHEW 81 MG TABLET PO SCH (08:30)
[2022-10-10] MEDS: PANTOPRAZOLE 40 MG VIAL IV SCH ×2 (09:40→20:47)
[2022-10-10] MEDS: INSULIN GLARGINE 100 UNIT/ML SUBCUT SCH (09:44)
[2022-10-10] MEDS: ENOXAPARIN 40 MG/0.4 ML SYRINGE SUBCUT SCH (12:30)
[2022-10-11] MEDS: INSULIN REGULAR 100 UNIT/ML SUBCUT SCH ×6 (01:04→23:14)
[2022-10-11] MEDS: MEROPENEM 500 MG in SODIUM CHLORIDE 0.9% 100 ML IV SCH ×4 (04:19→20:33)
[2022-10-11 05:15] LABS: Basophils % 0.1 % (0.0-0.8); Eosinophils # 0.1 10*3/uL (0.0-0.87); Eosinophils % 0.8 % (0.00-10.9); Hematocrit 33.5 VOL% (42.0-52.0); Hemoglobin 10.5 GM/DL (14.0-18.0); Immature Granulocytes % 0.6 %; Immature Granulocytes Absolute 0.05 #; Lymphocytes # 1.8 10*3/uL (1.4-4.0); Mean Corpuscular HGB Conc 31.3 GM/DL (32-36); Mean Corpuscular Volume 98.2 FL (87-102); Monocytes # 0.6 10*3/uL (0.11-0.8); Monocytes % 6.3 % (1.7-12.7); Neutrophils % 72.2 % (38.7-73.9); Platelet Count 277 T/CUMM (130-400); Red Blood Count 3.41 MC/CUMM (3.8-5.5); Red Cell Distribution Width 15.2 % (9.3-17.3); White Blood Count 8.8 T/CUMM (4-12)
[2022-10-11 05:33] LABS: Calcium 7.7 MG/DL (8.5-10.1); Osmolality,Calculated 294.3 MOS/KG (273-304); Potassium 4.3 MMOL/L (3.5-5.1)
[2022-10-11] MEDS: ALBUTEROL/IPRATROPIUM 3 ML NEB RESP TX SCH ×3 (07:04→19:01)
[2022-10-11] MEDS: PANTOPRAZOLE 40 MG VIAL IV SCH ×2 (08:50→20:34)
[2022-10-11] MEDS: ATORVASTATIN 80 MG TABLET PO SCH (08:51)
[2022-10-11] MEDS: INSULIN GLARGINE 100 UNIT/ML SUBCUT SCH (08:51)
[2022-10-11] MEDS: DAPAGLIFLOZIN 10 MG TABLET PO SCH (08:52)
[2022-10-11] MEDS: ASPIRIN CHEW 81 MG TABLET PO SCH (08:52)
[2022-10-11] MEDS: ENOXAPARIN 40 MG/0.4 ML SYRINGE SUBCUT SCH (13:08)
[2022-10-11] MEDS: ACETAMINOPHEN 325 MG TABLET PO PRN ×2 (16:40→21:48)
[2022-10-12] MEDS: ALBUTEROL/IPRATROPIUM 3 ML NEB RESP TX SCH ×5 (00:35→18:16)
[2022-10-12] MEDS: MEROPENEM 500 MG in SODIUM CHLORIDE 0.9% 100 ML IV SCH ×4 (03:19→20:19)
[2022-10-12] MEDS: INSULIN REGULAR 100 UNIT/ML SUBCUT SCH ×7 (03:53→20:21)
[2022-10-12 05:03] LABS: Basophils % 0.2 % (0.0-0.8); Eosinophils # 0.1 10*3/uL (0.0-0.87); Eosinophils % 0.6 % (0.00-10.9); Hematocrit 35.8 VOL% (42.0-52.0); Hemoglobin 11.3 GM/DL (14.0-18.0); Immature Granulocytes % 0.4 %; Immature Granulocytes Absolute 0.03 #; Lymphocytes # 1.9 10*3/uL (1.4-4.0); Mean Corpuscular HGB Conc 31.6 GM/DL (32-36); Mean Corpuscular Volume 98.4 FL (87-102); Mean Platelet Volume 10.6 FL (9.6-12.0); Monocytes # 0.5 10*3/uL (0.11-0.8); Monocytes % 5.5 % (1.7-12.7); Neutrophils % 70.3 % (38.7-73.9); Platelet Count 224 T/CUMM (130-400); Red Blood Count 3.64 MC/CUMM (3.8-5.5); Red Cell Distribution Width 15.1 % (9.3-17.3); White Blood Count 8.4 T/CUMM (4-12)
[2022-10-12 05:23] LABS: Calcium 8.3 MG/DL (8.5-10.1); Potassium 3.7 MMOL/L (3.5-5.1)
[2022-10-12] MEDS: DAPAGLIFLOZIN 10 MG TABLET PO SCH (08:26)
[2022-10-12] MEDS: ASPIRIN CHEW 81 MG TABLET PO SCH (08:26)
[2022-10-12] MEDS: ATORVASTATIN 80 MG TABLET PO SCH (08:26)
[2022-10-12] MEDS: PANTOPRAZOLE 40 MG VIAL IV SCH ×2 (08:26→20:34)
[2022-10-12] MEDS: INSULIN GLARGINE 100 UNIT/ML SUBCUT SCH (08:27)
[2022-10-12 10:32] LABS: Mucus,Urine Occasional /LPF (Occasional); RBC,Urine 11 /HPF (0-4); Urine Appearance Clear (Clear); Urine Color Yellow (Yellow)
[2022-10-12 10:33] LABS: Bilirubin,Urine Negative (Negative); Blood, Urine Small mg/dL (Negative); Glucose,Urine (UA) 500 mg/dL (Negative); Ketones,Urine Negative (Negative); Nitrite,Urine Negative (Negative); Protein,Urine 30 mg/dL (Negative); Urine Specific Gravity 1.025 (1.001-1.035); Urine Urobilinogen 0.2 eU/dL (<2.0); Urine pH 5.5 (4.5-8.0)
[2022-10-12] MEDS: VANCOMYCIN INJ 1,500 MG in SODIUM CHLORIDE 0.9% 250 ML IV SCH ×2 (12:49→23:43)
[2022-10-12] MEDS: ENOXAPARIN 40 MG/0.4 ML SYRINGE SUBCUT SCH (13:19)
[2022-10-13] MEDS: ALBUTEROL/IPRATROPIUM 3 ML NEB RESP TX SCH ×4 (00:04→19:39)
[2022-10-13] MEDS: INSULIN REGULAR 100 UNIT/ML SUBCUT SCH ×6 (00:09→20:41)
[2022-10-13] MEDS: MEROPENEM 500 MG in SODIUM CHLORIDE 0.9% 100 ML IV SCH ×4 (01:47→21:30)
[2022-10-13 06:14] LABS: Basophils % 0.1 % (0.0-0.8); Eosinophils # 0.1 10*3/uL (0.0-0.87); Eosinophils % 0.8 % (0.00-10.9); Hematocrit 34.2 VOL% (42.0-52.0); Hemoglobin 10.6 GM/DL (14.0-18.0); Immature Granulocytes % 0.5 %; Immature Granulocytes Absolute 0.04 #; Lymphocytes # 1.7 10*3/uL (1.4-4.0); Lymphocytes % 21.4 % (21.2-54.2); Mean Platelet Volume 11.3 FL (9.6-12.0); Monocytes # 0.3 10*3/uL (0.11-0.8); Monocytes % 4.2 % (1.7-12.7); Platelet Count 199 T/CUMM (130-400); Red Blood Count 3.49 MC/CUMM (3.8-5.5); Red Cell Distribution Width 15.2 % (9.3-17.3); White Blood Count 7.8 T/CUMM (4-12)
[2022-10-13 06:34] LABS: Calcium 7.9 MG/DL (8.5-10.1); Osmolality,Calculated 296.6 MOS/KG (273-304)
[2022-10-13] MEDS: INSULIN GLARGINE 100 UNIT/ML SUBCUT SCH (09:17)
[2022-10-13] MEDS: PANTOPRAZOLE 40 MG VIAL IV SCH ×2 (09:17→20:41)
[2022-10-13] MEDS: VANCOMYCIN INJ 1,500 MG in SODIUM CHLORIDE 0.9% 250 ML IV SCH (11:38)
[2022-10-13] MEDS: ASPIRIN CHEW 81 MG TABLET PO SCH (14:45)
[2022-10-13] MEDS: DAPAGLIFLOZIN 10 MG TABLET PO SCH (14:45)
[2022-10-13] MEDS: ATORVASTATIN 80 MG TABLET PO SCH (14:45)
[2022-10-13] MEDS: ENOXAPARIN 40 MG/0.4 ML SYRINGE SUBCUT SCH (14:46)
[2022-10-14] MEDS: ALBUTEROL/IPRATROPIUM 3 ML NEB RESP TX SCH ×5 (00:22→23:52)
[2022-10-14] MEDS: VANCOMYCIN INJ 1,500 MG in SODIUM CHLORIDE 0.9% 250 ML IV SCH ×3 (02:10→22:23)
[2022-10-14] MEDS: INSULIN REGULAR 100 UNIT/ML SUBCUT SCH ×6 (02:59→21:47)
[2022-10-14] MEDS: MEROPENEM 500 MG in SODIUM CHLORIDE 0.9% 100 ML IV SCH ×4 (04:30→21:47)
[2022-10-14 04:41] LABS: Basophils % 0.2 % (0.0-0.8); Eosinophils # 0.1 10*3/uL (0.0-0.87); Eosinophils % 1.4 % (0.00-10.9); Hematocrit 31.2 VOL% (42.0-52.0); Hemoglobin 9.9 GM/DL (14.0-18.0); Immature Granulocytes % 0.3 %; Immature Granulocytes Absolute 0.02 #; Lymphocytes # 1.8 10*3/uL (1.4-4.0); Lymphocytes % 27.3 % (21.2-54.2); Mean Corpuscular HGB Conc 31.7 GM/DL (32-36); Mean Corpuscular Volume 98.1 FL (87-102); Mean Platelet Volume 10.6 FL (9.6-12.0); Monocytes # 0.3 10*3/uL (0.11-0.8); Monocytes % 4.5 % (1.7-12.7); Neutrophils % 66.3 % (38.7-73.9); Platelet Count 148 T/CUMM (130-400); Red Blood Count 3.18 MC/CUMM (3.8-5.5); Red Cell Distribution Width 15.1 % (9.3-17.3); White Blood Count 6.5 T/CUMM (4-12)
[2022-10-14 04:57] LABS: PT Patient Result 10.8 SECS (10.1-12.1)
[2022-10-14 05:10] LABS: Calcium 7.5 MG/DL (8.5-10.1); Osmolality,Calculated 290.6 MOS/KG (273-304); Potassium 3.8 MMOL/L (3.5-5.1)
[2022-10-14] MEDS: LACTATED RINGERS 1,000 ML IV SCH (08:45)
[2022-10-14] MEDS ORDERED: ETOMIDATE 20 MG/10 ML VIAL IV ONE (09:53)
[2022-10-14] MEDS ORDERED: LIDOCAINE 2% 5 ML VIAL ONE (09:53)
[2022-10-14] MEDS ORDERED: propofoL 200 MG/20 ML VIAL IV ONE (09:53)
[2022-10-14] MEDS ORDERED: PHENYLEPHRINE 1 MG/10 ML SYRINGE IV ONE (09:53)
[2022-10-14] MEDS: PANTOPRAZOLE 40 MG VIAL IV SCH ×2 (11:55→21:48)
[2022-10-14] MEDS: DAPAGLIFLOZIN 10 MG TABLET PO SCH (11:55)
[2022-10-14] MEDS: ATORVASTATIN 80 MG TABLET PO SCH (11:55)
[2022-10-14] MEDS: ASPIRIN CHEW 81 MG TABLET PO SCH (11:55)
[2022-10-14] MEDS: INSULIN GLARGINE 100 UNIT/ML SUBCUT SCH (12:30)
[2022-10-14] MEDS: DEXTROSE 5% 1,000 ML IV SCH (14:20)
[2022-10-15] MEDS: INSULIN REGULAR 100 UNIT/ML SUBCUT SCH ×6 (01:38→20:34)
[2022-10-15] MEDS: MEROPENEM 500 MG in SODIUM CHLORIDE 0.9% 100 ML IV SCH ×4 (03:10→20:35)
[2022-10-15 05:42] LABS: Basophils % 0.2 % (0.0-0.8); Eosinophils % 0.7 % (0.00-10.9); Hematocrit 30.8 VOL% (42.0-52.0); Hemoglobin 9.7 GM/DL (14.0-18.0); Immature Granulocytes % 0.3 %; Immature Granulocytes Absolute 0.02 #; Lymphocytes # 1.8 10*3/uL (1.4-4.0); Lymphocytes % 30.4 % (21.2-54.2); Mean Corpuscular HGB Conc 31.5 GM/DL (32-36); Mean Corpuscular Volume 98.1 FL (87-102); Monocytes # 0.2 10*3/uL (0.11-0.8); Neutrophils % 64.4 % (38.7-73.9); Platelet Count 130 T/CUMM (130-400); Red Blood Count 3.14 MC/CUMM (3.8-5.5); Red Cell Distribution Width 15.3 % (9.3-17.3)
[2022-10-15 06:03] LABS: Calcium 7.5 MG/DL (8.5-10.1); Osmolality,Calculated 286.1 MOS/KG (273-304); Potassium 3.8 MMOL/L (3.5-5.1)
[2022-10-15] MEDS: ALBUTEROL/IPRATROPIUM 3 ML NEB RESP TX SCH ×3 (07:11→19:56)
[2022-10-15] MEDS: ASPIRIN CHEW 81 MG TABLET PO SCH (09:58)
[2022-10-15] MEDS: ATORVASTATIN 80 MG TABLET PO SCH (09:59)
[2022-10-15] MEDS: INSULIN GLARGINE 100 UNIT/ML SUBCUT SCH (09:59)
[2022-10-15] MEDS: DAPAGLIFLOZIN 10 MG TABLET PO SCH (09:59)
[2022-10-15] MEDS: PANTOPRAZOLE 40 MG VIAL IV SCH ×2 (10:00→20:36)
[2022-10-15] MEDS: VANCOMYCIN INJ 1,500 MG in SODIUM CHLORIDE 0.9% 250 ML IV SCH (12:14)
[2022-10-15] MEDS: LACTATED RINGERS 1,000 ML IV SCH (12:57)
[2022-10-15] MEDS: DEXTROSE 5% 1,000 ML IV SCH (12:57)
[2022-10-16] MEDS: ALBUTEROL/IPRATROPIUM 3 ML NEB RESP TX SCH ×4 (01:03→19:29)
[2022-10-16] MEDS: MEROPENEM 500 MG in SODIUM CHLORIDE 0.9% 100 ML IV SCH ×4 (01:08→21:22)
[2022-10-16] MEDS: INSULIN REGULAR 100 UNIT/ML SUBCUT SCH ×6 (01:08→21:23)
[2022-10-16 04:52] LABS: Basophils % 0.2 % (0.0-0.8); Eosinophils # 0.1 10*3/uL (0.0-0.87); Hematocrit 29.3 VOL% (42.0-52.0); Hemoglobin 9.3 GM/DL (14.0-18.0); Immature Granulocytes % 0.3 %; Immature Granulocytes Absolute 0.02 #; Lymphocytes # 1.8 10*3/uL (1.4-4.0); Lymphocytes % 30.4 % (21.2-54.2); Mean Corpuscular HGB Conc 31.7 GM/DL (32-36); Mean Corpuscular Volume 97.3 FL (87-102); Mean Platelet Volume 11.1 FL (9.6-12.0); Monocytes # 0.2 10*3/uL (0.11-0.8); Monocytes % 3.8 % (1.7-12.7); Neutrophils % 64.3 % (38.7-73.9); Platelet Count 115 T/CUMM (130-400); Red Blood Count 3.01 MC/CUMM (3.8-5.5)
[2022-10-16 05:05] LABS: Calcium 7.2 MG/DL (8.5-10.1); Osmolality,Calculated 289.3 MOS/KG (273-304); Potassium 4.1 MMOL/L (3.5-5.1)
[2022-10-16] MEDS: ATORVASTATIN 80 MG TABLET PO SCH (09:45)
[2022-10-16] MEDS: DAPAGLIFLOZIN 10 MG TABLET PO SCH (09:45)
[2022-10-16] MEDS: ASPIRIN CHEW 81 MG TABLET PO SCH (09:45)
[2022-10-16] MEDS: PANTOPRAZOLE 40 MG VIAL IV SCH ×2 (09:45→21:23)
[2022-10-16] MEDS: INSULIN GLARGINE 100 UNIT/ML SUBCUT SCH (09:47)
[2022-10-16] MEDS: ENOXAPARIN 40 MG/0.4 ML SYRINGE SUBCUT SCH (13:40)
[2022-10-17] MEDS: ALBUTEROL/IPRATROPIUM 3 ML NEB RESP TX SCH ×4 (01:00→19:55)
[2022-10-17] MEDS: INSULIN REGULAR 100 UNIT/ML SUBCUT SCH ×6 (01:10→21:12)
[2022-10-17] MEDS: PANTOPRAZOLE 40 MG VIAL IV SCH ×2 (09:39→21:11)
[2022-10-17] MEDS: DAPAGLIFLOZIN 10 MG TABLET PO SCH (09:40)
[2022-10-17] MEDS: ATORVASTATIN 80 MG TABLET PO SCH (09:40)
[2022-10-17] MEDS: ASPIRIN CHEW 81 MG TABLET PO SCH (09:40)
[2022-10-17] MEDS: INSULIN GLARGINE 100 UNIT/ML SUBCUT SCH (09:41)
[2022-10-17] MEDS: ENOXAPARIN 40 MG/0.4 ML SYRINGE SUBCUT SCH (10:05)
[2022-10-18] MEDS: INSULIN REGULAR 100 UNIT/ML SUBCUT SCH ×6 (01:02→20:55)
[2022-10-18] MEDS: ALBUTEROL/IPRATROPIUM 3 ML NEB RESP TX SCH ×4 (01:25→19:28)
[2022-10-18 05:04] LABS: Basophils % 0.3 % (0.0-0.8); Eosinophils # 0.1 10*3/uL (0.0-0.87); Hematocrit 28.6 VOL% (42.0-52.0); Immature Granulocytes % 0.2 %; Immature Granulocytes Absolute 0.01 #; Lymphocytes % 30.7 % (21.2-54.2); Mean Corpuscular HGB Conc 31.5 GM/DL (32-36); Mean Corpuscular Volume 96.3 FL (87-102); Mean Platelet Volume 11.2 FL (9.6-12.0); Monocytes # 0.3 10*3/uL (0.11-0.8); Monocytes % 4.1 % (1.7-12.7); Neutrophils % 62.7 % (38.7-73.9); Platelet Count 115 T/CUMM (130-400); Red Blood Count 2.97 MC/CUMM (3.8-5.5); White Blood Count 6.6 T/CUMM (4-12)
[2022-10-18 05:18] LABS: Calcium 7.5 MG/DL (8.5-10.1); Osmolality,Calculated 281.4 MOS/KG (273-304); Potassium 4.1 MMOL/L (3.5-5.1)
[2022-10-18] MEDS: DAPAGLIFLOZIN 10 MG TABLET PO SCH (10:00)
[2022-10-18] MEDS: ENOXAPARIN 40 MG/0.4 ML SYRINGE SUBCUT SCH (10:00)
[2022-10-18] MEDS: PANTOPRAZOLE 40 MG VIAL IV SCH ×2 (10:00→20:52)
[2022-10-18] MEDS: ASPIRIN CHEW 81 MG TABLET PO SCH (10:00)
[2022-10-18] MEDS: INSULIN GLARGINE 100 UNIT/ML SUBCUT SCH (10:00)
[2022-10-18] MEDS: ATORVASTATIN 80 MG TABLET PO SCH (10:00)
[2022-10-18 11:24] LABS: Mucus,Urine Occasional /LPF (Occasional); RBC,Urine 26 /HPF (0-4)
[2022-10-18 11:25] LABS: Bilirubin,Urine Negative (Negative); Blood, Urine Trace mg/dL (Negative); Glucose,Urine (UA) >1000 mg/dL (Negative); Ketones,Urine Negative (Negative); Nitrite,Urine Negative (Negative); Protein,Urine 30 mg/dL (Negative); Urine Appearance Clear (Clear); Urine Color Yellow (Yellow); Urine pH 5.5 (4.5-8.0)
[2022-10-18] MEDS ORDERED: CEFEPIME 2,000 MG in SODIUM CHLORIDE 0.9% 100 ML IV SCH (17:00)
[2022-10-18] MEDS: CEFEPIME 1,000 MG in SODIUM CHLORIDE 0.9% 100 ML IV SCH (17:20)
[2022-10-18] MEDS: LEVOFLOXACIN INJ 750 MG/150 ML PREMIX IV SCH (20:51)
[2022-10-18] MEDS: VANCOMYCIN INJ 1,500 MG in SODIUM CHLORIDE 0.9% 500 ML IV SCH (22:30)
[2022-10-19] MEDS: ALBUTEROL/IPRATROPIUM 3 ML NEB RESP TX SCH ×4 (00:05→19:47)
[2022-10-19] MEDS: INSULIN REGULAR 100 UNIT/ML SUBCUT SCH ×6 (00:41→21:12)
[2022-10-19] MEDS: CEFEPIME 1,000 MG in SODIUM CHLORIDE 0.9% 100 ML IV SCH ×4 (00:42→18:15)
[2022-10-19 06:14] LABS: Basophils % 0.3 % (0.0-0.8); Eosinophils # 0.1 10*3/uL (0.0-0.87); Hematocrit 28.4 VOL% (42.0-52.0); Hemoglobin 9.1 GM/DL (14.0-18.0); Immature Granulocytes % 0.3 %; Immature Granulocytes Absolute 0.02 #; Lymphocytes # 1.6 10*3/uL (1.4-4.0); Lymphocytes % 24.4 % (21.2-54.2); Mean Corpuscular Volume 96.6 FL (87-102); Mean Platelet Volume 11.2 FL (9.6-12.0); Monocytes # 0.3 10*3/uL (0.11-0.8); Monocytes % 4.5 % (1.7-12.7); Neutrophils % 68.5 % (38.7-73.9); Platelet Count 126 T/CUMM (130-400); Red Blood Count 2.94 MC/CUMM (3.8-5.5); Red Cell Distribution Width 14.8 % (9.3-17.3); White Blood Count 6.5 T/CUMM (4-12)
[2022-10-19 06:33] LABS: Calcium 7.3 MG/DL (8.5-10.1); Osmolality,Calculated 280.7 MOS/KG (273-304); Potassium 4.1 MMOL/L (3.5-5.1)
[2022-10-19] MEDS: INSULIN GLARGINE 100 UNIT/ML SUBCUT SCH (09:03)
[2022-10-19] MEDS: ASPIRIN CHEW 81 MG TABLET PO SCH (09:03)
[2022-10-19] MEDS: DAPAGLIFLOZIN 10 MG TABLET PO SCH (09:03)
[2022-10-19] MEDS: ATORVASTATIN 80 MG TABLET PO SCH (09:03)
[2022-10-19] MEDS: PANTOPRAZOLE 40 MG VIAL IV SCH ×2 (09:03→21:12)
[2022-10-19] MEDS: VANCOMYCIN INJ 1,500 MG in SODIUM CHLORIDE 0.9% 500 ML IV SCH ×2 (09:05→22:00)
[2022-10-19] MEDS: ENOXAPARIN 40 MG/0.4 ML SYRINGE SUBCUT SCH (10:37)
[2022-10-19] MEDS: LEVOFLOXACIN INJ 750 MG/150 ML PREMIX IV SCH (21:09)
[2022-10-19] MEDS: DOCUSATE SODIUM 100 MG/10 ML UDCUP PO SCH (21:11)
[2022-10-20] MEDS: CEFEPIME 1,000 MG in SODIUM CHLORIDE 0.9% 100 ML IV SCH ×4 (00:33→17:01)
[2022-10-20] MEDS: ALBUTEROL/IPRATROPIUM 3 ML NEB RESP TX SCH ×4 (00:59→19:25)
[2022-10-20] MEDS: INSULIN REGULAR 100 UNIT/ML SUBCUT SCH ×6 (01:31→22:12)
[2022-10-20 06:07] LABS: Basophils % 0.2 % (0.0-0.8); Eosinophils # 0.2 10*3/uL (0.0-0.87); Eosinophils % 2.6 % (0.00-10.9); Hematocrit 27.5 VOL% (42.0-52.0); Hemoglobin 8.7 GM/DL (14.0-18.0); Immature Granulocytes % 0.3 %; Immature Granulocytes Absolute 0.02 #; Lymphocytes # 1.6 10*3/uL (1.4-4.0); Lymphocytes % 27.3 % (21.2-54.2); Mean Corpuscular HGB Conc 31.6 GM/DL (32-36); Mean Corpuscular Volume 96.2 FL (87-102); Mean Platelet Volume 11.4 FL (9.6-12.0); Monocytes # 0.3 10*3/uL (0.11-0.8); Monocytes % 4.3 % (1.7-12.7); Neutrophils % 65.3 % (38.7-73.9); Platelet Count 130 T/CUMM (130-400); Red Blood Count 2.86 MC/CUMM (3.8-5.5); Red Cell Distribution Width 14.8 % (9.3-17.3); White Blood Count 5.8 T/CUMM (4-12)
[2022-10-20 06:36] LABS: Calcium 7.7 MG/DL (8.5-10.1); Potassium 3.8 MMOL/L (3.5-5.1)
[2022-10-20] MEDS: ASPIRIN CHEW 81 MG TABLET PO SCH (09:36)
[2022-10-20] MEDS: PANTOPRAZOLE 40 MG VIAL IV SCH ×2 (09:36→20:51)
[2022-10-20] MEDS: VANCOMYCIN INJ 1,500 MG in SODIUM CHLORIDE 0.9% 500 ML IV SCH ×2 (09:36→22:00)
[2022-10-20] MEDS: DAPAGLIFLOZIN 10 MG TABLET PO SCH (09:36)
[2022-10-20] MEDS: DOCUSATE SODIUM 100 MG/10 ML UDCUP PO SCH ×2 (09:36→20:50)
[2022-10-20] MEDS: ATORVASTATIN 80 MG TABLET PO SCH (09:36)
[2022-10-20] MEDS: INSULIN GLARGINE 100 UNIT/ML SUBCUT SCH (09:36)
[2022-10-20] MEDS: ENOXAPARIN 40 MG/0.4 ML SYRINGE SUBCUT SCH (11:53)
[2022-10-20] MEDS: LEVOFLOXACIN INJ 750 MG/150 ML PREMIX IV SCH (20:50)
[2022-10-20] MEDS: ZINC OXIDE 16% PASTE 57 GM TUBE TOP SCH (21:00)
[2022-10-21] MEDS: INSULIN REGULAR 100 UNIT/ML SUBCUT SCH ×6 (00:14→21:35)
[2022-10-21] MEDS: CEFEPIME 1,000 MG in SODIUM CHLORIDE 0.9% 100 ML IV SCH ×4 (00:15→17:19)
[2022-10-21] MEDS: ALBUTEROL/IPRATROPIUM 3 ML NEB RESP TX SCH ×4 (01:41→19:10)
[2022-10-21 05:15] LABS: Basophils % 0.3 % (0.0-0.8); Eosinophils # 0.2 10*3/uL (0.0-0.87); Eosinophils % 2.5 % (0.00-10.9); Hematocrit 27.3 VOL% (42.0-52.0); Hemoglobin 8.5 GM/DL (14.0-18.0); Immature Granulocytes % 0.5 %; Immature Granulocytes Absolute 0.03 #; Lymphocytes # 1.7 10*3/uL (1.4-4.0); Lymphocytes % 26.1 % (21.2-54.2); Mean Corpuscular HGB Conc 31.1 GM/DL (32-36); Mean Corpuscular Volume 97.8 FL (87-102); Mean Platelet Volume 11.6 FL (9.6-12.0); Monocytes # 0.4 10*3/uL (0.11-0.8); Monocytes % 6.3 % (1.7-12.7); Neutrophils % 64.3 % (38.7-73.9); Platelet Count 133 T/CUMM (130-400); Red Blood Count 2.79 MC/CUMM (3.8-5.5); Red Cell Distribution Width 14.6 % (9.3-17.3); White Blood Count 6.4 T/CUMM (4-12)
[2022-10-21 05:36] LABS: Calcium 7.3 MG/DL (8.5-10.1); Osmolality,Calculated 280.4 MOS/KG (273-304); Potassium 3.8 MMOL/L (3.5-5.1)
[2022-10-21] MEDS ORDERED: MAGNESIUM SULF RIDER 2 GM/50 ML PREMIX IV ONE (08:00)
[2022-10-21] MEDS: DAPAGLIFLOZIN 10 MG TABLET PO SCH (09:45)
[2022-10-21] MEDS: ACETAMINOPHEN 325 MG TABLET PO PRN (09:45)
[2022-10-21] MEDS: ASPIRIN CHEW 81 MG TABLET PO SCH (09:45)
[2022-10-21] MEDS: PANTOPRAZOLE 40 MG VIAL IV SCH (09:45)
[2022-10-21] MEDS: ATORVASTATIN 80 MG TABLET PO SCH (09:45)
[2022-10-21] MEDS: VANCOMYCIN INJ 1,500 MG in SODIUM CHLORIDE 0.9% 500 ML IV SCH ×2 (09:46→22:52)
[2022-10-21] MEDS: ZINC OXIDE 16% PASTE 57 GM TUBE TOP SCH ×2 (09:46→21:24)
[2022-10-21] MEDS: INSULIN GLARGINE 100 UNIT/ML SUBCUT SCH (09:54)
[2022-10-21] MEDS: DOCUSATE SODIUM 100 MG/10 ML UDCUP PO SCH ×2 (09:54→21:24)
[2022-10-21] MEDS ORDERED: TUBERCULIN SKIN TEST 0.1 ML SYRINGE INTRADERM ONE (10:00)
[2022-10-21] MEDS: ENOXAPARIN 40 MG/0.4 ML SYRINGE SUBCUT SCH (12:07)
[2022-10-21] MEDS ORDERED: PANTOPRAZOLE 40 MG TABLET PO SCH (21:00)
[2022-10-21] MEDS: LEVOFLOXACIN INJ 750 MG/150 ML PREMIX IV SCH (21:21)
[2022-10-21] MEDS: OMEPRAZOLE ODT 20 MG TABLET PER TUBE SCH (21:24)
[2022-10-22] MEDS: ALBUTEROL/IPRATROPIUM 3 ML NEB RESP TX SCH ×4 (00:07→19:31)
[2022-10-22] MEDS: CEFEPIME 1,000 MG in SODIUM CHLORIDE 0.9% 100 ML IV SCH ×4 (00:54→17:00)
[2022-10-22] MEDS: INSULIN REGULAR 100 UNIT/ML SUBCUT SCH ×6 (00:56→20:46)
[2022-10-22 06:19] LABS: Basophils % 0.2 % (0.0-0.8); Eosinophils # 0.2 10*3/uL (0.0-0.87); Eosinophils % 2.4 % (0.00-10.9); Hematocrit 26.7 VOL% (42.0-52.0); Hemoglobin 8.5 GM/DL (14.0-18.0); Immature Granulocytes % 0.5 %; Immature Granulocytes Absolute 0.03 #; Lymphocytes # 1.4 10*3/uL (1.4-4.0); Lymphocytes % 23.3 % (21.2-54.2); Mean Corpuscular HGB Conc 31.8 GM/DL (32-36); Mean Corpuscular Volume 96.7 FL (87-102); Mean Platelet Volume 11.4 FL (9.6-12.0); Monocytes # 0.4 10*3/uL (0.11-0.8); Monocytes % 6.5 % (1.7-12.7); Neutrophils % 67.1 % (38.7-73.9); Platelet Count 144 T/CUMM (130-400); Red Blood Count 2.76 MC/CUMM (3.8-5.5); White Blood Count 6.2 T/CUMM (4-12)
[2022-10-22 06:42] LABS: Calcium 7.5 MG/DL (8.5-10.1); Osmolality,Calculated 279.4 MOS/KG (273-304); Potassium 4.3 MMOL/L (3.5-5.1)
[2022-10-22] MEDS: OMEPRAZOLE ODT 20 MG TABLET PER TUBE SCH ×2 (09:48→21:19)
[2022-10-22] MEDS: ACETAMINOPHEN 325 MG TABLET PO PRN (09:48)
[2022-10-22] MEDS: DOCUSATE SODIUM 100 MG/10 ML UDCUP PO SCH ×2 (09:48→21:18)
[2022-10-22] MEDS: ATORVASTATIN 80 MG TABLET PO SCH (09:48)
[2022-10-22] MEDS: DAPAGLIFLOZIN 10 MG TABLET PO SCH (09:48)
[2022-10-22] MEDS: ASPIRIN CHEW 81 MG TABLET PO SCH (09:48)
[2022-10-22] MEDS: ZINC OXIDE 16% PASTE 57 GM TUBE TOP SCH ×2 (09:49→21:18)
[2022-10-22] MEDS: VANCOMYCIN INJ 1,500 MG in SODIUM CHLORIDE 0.9% 500 ML IV SCH (09:52)
[2022-10-22] MEDS: INSULIN GLARGINE 100 UNIT/ML SUBCUT SCH (10:02)
[2022-10-22] MEDS ORDERED: VANCOMYCIN INJ 1,500 MG in SODIUM CHLORIDE 0.9% 500 ML IV SCH (12:00)
[2022-10-22] MEDS: ENOXAPARIN 40 MG/0.4 ML SYRINGE SUBCUT SCH (12:04)
[2022-10-22] MEDS: LEVOFLOXACIN INJ 750 MG/150 ML PREMIX IV SCH (21:15)
[2022-10-23] MEDS: ALBUTEROL/IPRATROPIUM 3 ML NEB RESP TX SCH ×4 (00:46→19:10)
[2022-10-23] MEDS: CEFEPIME 1,000 MG in SODIUM CHLORIDE 0.9% 100 ML IV SCH ×3 (03:43→17:51)
[2022-10-23] MEDS: INSULIN REGULAR 100 UNIT/ML SUBCUT SCH ×6 (03:44→21:52)
[2022-10-23 06:19] LABS: Basophils % 0.2 % (0.0-0.8); Eosinophils # 0.1 10*3/uL (0.0-0.87); Eosinophils % 2.1 % (0.00-10.9); Hematocrit 26.3 VOL% (42.0-52.0); Hemoglobin 8.3 GM/DL (14.0-18.0); Immature Granulocytes % 0.4 %; Immature Granulocytes Absolute 0.02 #; Lymphocytes # 1.4 10*3/uL (1.4-4.0); Lymphocytes % 25.3 % (21.2-54.2); Mean Corpuscular HGB Conc 31.6 GM/DL (32-36); Mean Corpuscular Volume 95.6 FL (87-102); Mean Platelet Volume 10.3 FL (9.6-12.0); Monocytes # 0.4 10*3/uL (0.11-0.8); Monocytes % 7.7 % (1.7-12.7); Neutrophils % 64.3 % (38.7-73.9); Platelet Count 189 T/CUMM (130-400); Red Blood Count 2.75 MC/CUMM (3.8-5.5); Red Cell Distribution Width 15.2 % (9.3-17.3); White Blood Count 5.7 T/CUMM (4-12)
[2022-10-23 06:34] LABS: Calcium 7.9 MG/DL (8.5-10.1); Osmolality,Calculated 278.7 MOS/KG (273-304); Potassium 4.2 MMOL/L (3.5-5.1)
[2022-10-23] MEDS: ASPIRIN CHEW 81 MG TABLET PO SCH (09:27)
[2022-10-23] MEDS: ATORVASTATIN 80 MG TABLET PO SCH (09:27)
[2022-10-23] MEDS: DAPAGLIFLOZIN 10 MG TABLET PO SCH (09:27)
[2022-10-23] MEDS: OMEPRAZOLE ODT 20 MG TABLET PER TUBE SCH ×2 (09:27→21:55)
[2022-10-23] MEDS: DOCUSATE SODIUM 100 MG/10 ML UDCUP PO SCH ×2 (09:27→21:54)
[2022-10-23] MEDS: ZINC OXIDE 16% PASTE 57 GM TUBE TOP SCH ×2 (09:28→21:53)
[2022-10-23] MEDS: INSULIN GLARGINE 100 UNIT/ML SUBCUT SCH (09:28)
[2022-10-23] MEDS: ENOXAPARIN 40 MG/0.4 ML SYRINGE SUBCUT SCH (10:15)
[2022-10-23] MEDS ORDERED: DEXTROSE 50% 25 GM/50 ML VIAL IV PRN (15:12)
[2022-10-23] MEDS ORDERED: DEXTROSE 10% 250 ML BAG IV PRN (15:16)
[2022-10-23] MEDS: LEVOFLOXACIN INJ 750 MG/150 ML PREMIX IV SCH (21:56)
[2022-10-24] MEDS: CEFEPIME 1,000 MG in SODIUM CHLORIDE 0.9% 100 ML IV SCH ×5 (00:45→22:20)
[2022-10-24] MEDS: ALBUTEROL/IPRATROPIUM 3 ML NEB RESP TX SCH ×4 (01:10→19:26)
[2022-10-24] MEDS: INSULIN REGULAR 100 UNIT/ML SUBCUT SCH ×6 (01:13→20:42)
[2022-10-24 04:48] LABS: Basophils % 0.2 % (0.0-0.8); Eosinophils # 0.1 10*3/uL (0.0-0.87); Eosinophils % 1.9 % (0.00-10.9); Hemoglobin 8.7 GM/DL (14.0-18.0); Immature Granulocytes % 0.3 %; Immature Granulocytes Absolute 0.02 #; Lymphocytes # 1.5 10*3/uL (1.4-4.0); Lymphocytes % 22.9 % (21.2-54.2); Mean Corpuscular HGB Conc 32.2 GM/DL (32-36); Mean Corpuscular Volume 95.1 FL (87-102); Mean Platelet Volume 10.3 FL (9.6-12.0); Monocytes # 0.5 10*3/uL (0.11-0.8); Monocytes % 7.4 % (1.7-12.7); Neutrophils % 67.3 % (38.7-73.9); Platelet Count 210 T/CUMM (130-400); Red Blood Count 2.84 MC/CUMM (3.8-5.5); Red Cell Distribution Width 15.3 % (9.3-17.3); White Blood Count 6.3 T/CUMM (4-12)
[2022-10-24 05:04] LABS: Calcium 7.9 MG/DL (8.5-10.1); Osmolality,Calculated 281.4 MOS/KG (273-304); Potassium 4.1 MMOL/L (3.5-5.1)
[2022-10-24] MEDS: DOCUSATE SODIUM 100 MG/10 ML UDCUP PO SCH ×2 (09:38→20:42)
[2022-10-24] MEDS: ATORVASTATIN 80 MG TABLET PO SCH (09:38)
[2022-10-24] MEDS: ASPIRIN CHEW 81 MG TABLET PO SCH (09:38)
[2022-10-24] MEDS: DAPAGLIFLOZIN 10 MG TABLET PO SCH (09:38)
[2022-10-24] MEDS: ZINC OXIDE 16% PASTE 57 GM TUBE TOP SCH ×2 (09:39→20:43)
[2022-10-24] MEDS: INSULIN GLARGINE 100 UNIT/ML SUBCUT SCH (09:39)
[2022-10-24] MEDS: OMEPRAZOLE ODT 20 MG TABLET PER TUBE SCH ×2 (09:39→20:42)
[2022-10-24] MEDS: ENOXAPARIN 40 MG/0.4 ML SYRINGE SUBCUT SCH (10:05)
[2022-10-24] MEDS: LEVOFLOXACIN INJ 750 MG/150 ML PREMIX IV SCH (20:43)
[2022-10-25] MEDS: INSULIN REGULAR 100 UNIT/ML SUBCUT SCH ×6 (00:35→23:39)
[2022-10-25] MEDS: ALBUTEROL/IPRATROPIUM 3 ML NEB RESP TX SCH ×5 (02:32→23:58)
[2022-10-25] MEDS: CEFEPIME 1,000 MG in SODIUM CHLORIDE 0.9% 100 ML IV SCH (04:10)
[2022-10-25 06:40] LABS: Basophils % 0.3 % (0.0-0.8); Eosinophils # 0.1 10*3/uL (0.0-0.87); Eosinophils % 2.2 % (0.00-10.9); Hematocrit 29.2 VOL% (42.0-52.0); Hemoglobin 9.1 GM/DL (14.0-18.0); Immature Granulocytes % 0.3 %; Immature Granulocytes Absolute 0.02 #; Lymphocytes # 1.6 10*3/uL (1.4-4.0); Lymphocytes % 24.6 % (21.2-54.2); Mean Corpuscular HGB Conc 31.2 GM/DL (32-36); Mean Corpuscular Volume 95.4 FL (87-102); Mean Platelet Volume 10.3 FL (9.6-12.0); Monocytes # 0.5 10*3/uL (0.11-0.8); Monocytes % 7.8 % (1.7-12.7); Neutrophils % 64.8 % (38.7-73.9); Platelet Count 255 T/CUMM (130-400); Red Blood Count 3.06 MC/CUMM (3.8-5.5); Red Cell Distribution Width 15.4 % (9.3-17.3); White Blood Count 6.5 T/CUMM (4-12)
[2022-10-25 06:59] LABS: Calcium 8.5 MG/DL (8.5-10.1); Osmolality,Calculated 280.5 MOS/KG (273-304)
[2022-10-25] MEDS: INSULIN GLARGINE 100 UNIT/ML SUBCUT SCH (09:50)
[2022-10-25] MEDS: DAPAGLIFLOZIN 10 MG TABLET PO SCH (09:58)
[2022-10-25] MEDS: OMEPRAZOLE ODT 20 MG TABLET PER TUBE SCH ×2 (09:58→21:42)
[2022-10-25] MEDS: ATORVASTATIN 80 MG TABLET PO SCH (09:58)
[2022-10-25] MEDS: DOCUSATE SODIUM 100 MG/10 ML UDCUP PO SCH ×2 (09:58→21:42)
[2022-10-25] MEDS: ASPIRIN CHEW 81 MG TABLET PO SCH (09:58)
[2022-10-25] MEDS ORDERED: ENOXAPARIN 60 MG/0.6 ML SYRINGE SUBCUT ONE (12:30)
[2022-10-25] MEDS: ENOXAPARIN 40 MG/0.4 ML SYRINGE SUBCUT SCH (12:32)
[2022-10-25] MEDS: ENOXAPARIN 100 MG/ML SYRINGE SUBCUT SCH ×2 (13:18→22:46)
[2022-10-25] MEDS: ZINC OXIDE 16% PASTE 57 GM TUBE TOP SCH ×2 (16:21→21:43)
[2022-10-25] MEDS: LEVOFLOXACIN INJ 750 MG/150 ML PREMIX IV SCH (21:42)
[2022-10-25] MEDS: MENTHOL/ZINC OXIDE OINT 71 GM JAR TOP SCH (21:43)
[2022-10-26 05:34] LABS: Basophils % 0.5 % (0.0-0.8); Eosinophils # 0.1 10*3/uL (0.0-0.87); Hematocrit 29.4 VOL% (42.0-52.0); Hemoglobin 8.9 GM/DL (14.0-18.0); Immature Granulocytes % 0.5 %; Immature Granulocytes Absolute 0.03 #; Lymphocytes # 1.4 10*3/uL (1.4-4.0); Lymphocytes % 23.2 % (21.2-54.2); Mean Corpuscular HGB Conc 30.3 GM/DL (32-36); Mean Corpuscular Volume 95.8 FL (87-102); Monocytes # 0.5 10*3/uL (0.11-0.8); Monocytes % 8.7 % (1.7-12.7); Neutrophils % 65.1 % (38.7-73.9); Platelet Count 275 T/CUMM (130-400); Red Blood Count 3.07 MC/CUMM (3.8-5.5); Red Cell Distribution Width 15.4 % (9.3-17.3); White Blood Count 6.1 T/CUMM (4-12)
[2022-10-26 06:00] LABS: Calcium 8.3 MG/DL (8.5-10.1); Osmolality,Calculated 280.4 MOS/KG (273-304); Potassium 3.9 MMOL/L (3.5-5.1)
[2022-10-26] MEDS: INSULIN REGULAR 100 UNIT/ML SUBCUT SCH ×4 (06:08→23:57)
[2022-10-26] MEDS: ALBUTEROL/IPRATROPIUM 3 ML NEB RESP TX SCH ×3 (06:51→19:45)
[2022-10-26] MEDS: OMEPRAZOLE ODT 20 MG TABLET PER TUBE SCH ×2 (08:59→20:31)
[2022-10-26] MEDS: DAPAGLIFLOZIN 10 MG TABLET PO SCH (08:59)
[2022-10-26] MEDS: ASPIRIN CHEW 81 MG TABLET PO SCH (08:59)
[2022-10-26] MEDS: INSULIN GLARGINE 100 UNIT/ML SUBCUT SCH (08:59)
[2022-10-26] MEDS: ATORVASTATIN 80 MG TABLET PO SCH (08:59)
[2022-10-26] MEDS: DOCUSATE SODIUM 100 MG/10 ML UDCUP PO SCH ×2 (09:00→20:31)
[2022-10-26] MEDS: ENOXAPARIN 100 MG/ML SYRINGE SUBCUT SCH ×2 (10:55→22:18)
[2022-10-26] MEDS: MENTHOL/ZINC OXIDE OINT 71 GM JAR TOP SCH ×2 (15:41→20:31)
[2022-10-26] MEDS: cycloSPORINE OPH EMUL 1 VIAL BOTH EYES SCH ×2 (17:02→22:18)
[2022-10-26] MEDS: ZINC OXIDE 16% PASTE 57 GM TUBE TOP SCH ×2 (19:11→20:31)
[2022-10-27] MEDS: ALBUTEROL/IPRATROPIUM 3 ML NEB RESP TX SCH ×3 (01:31→14:27)
[2022-10-27 05:40] LABS: Basophils % 0.3 % (0.0-0.8); Eosinophils # 0.1 10*3/uL (0.0-0.87); Eosinophils % 1.4 % (0.00-10.9); Hematocrit 30.6 VOL% (42.0-52.0); Hemoglobin 9.5 GM/DL (14.0-18.0); Immature Granulocytes % 0.3 %; Immature Granulocytes Absolute 0.02 #; Lymphocytes # 1.9 10*3/uL (1.4-4.0); Lymphocytes % 29.5 % (21.2-54.2); Mean Corpuscular Volume 95.9 FL (87-102); Mean Platelet Volume 9.6 FL (9.6-12.0); Monocytes # 0.5 10*3/uL (0.11-0.8); Monocytes % 8.2 % (1.7-12.7); Neutrophils % 60.3 % (38.7-73.9); Platelet Count 357 T/CUMM (130-400); Red Blood Count 3.19 MC/CUMM (3.8-5.5); Red Cell Distribution Width 15.7 % (9.3-17.3); White Blood Count 6.3 T/CUMM (4-12)
[2022-10-27] MEDS: INSULIN REGULAR 100 UNIT/ML SUBCUT SCH ×2 (05:53→11:50)
[2022-10-27 06:00] LABS: Calcium 8.5 MG/DL (8.5-10.1); Osmolality,Calculated 280.4 MOS/KG (273-304); Potassium 4.1 MMOL/L (3.5-5.1)
[2022-10-27] MEDS: ACETAMINOPHEN 325 MG TABLET PO PRN (10:19)
[2022-10-27] MEDS: ATORVASTATIN 80 MG TABLET PO SCH (10:20)
[2022-10-27] MEDS: ASPIRIN CHEW 81 MG TABLET PO SCH (10:20)
[2022-10-27] MEDS: OMEPRAZOLE ODT 20 MG TABLET PER TUBE SCH (10:20)
[2022-10-27] MEDS: DOCUSATE SODIUM 100 MG/10 ML UDCUP PO SCH (10:20)
[2022-10-27] MEDS: MENTHOL/ZINC OXIDE OINT 71 GM JAR TOP SCH (10:21)
[2022-10-27] MEDS: cycloSPORINE OPH EMUL 1 VIAL BOTH EYES SCH (10:21)
[2022-10-27] MEDS: DAPAGLIFLOZIN 10 MG TABLET PO SCH (10:21)
[2022-10-27] MEDS: INSULIN GLARGINE 100 UNIT/ML SUBCUT SCH (10:21)
[2022-10-27] MEDS: ZINC OXIDE 16% PASTE 57 GM TUBE TOP SCH (10:21)
[2022-10-27] MEDS: ENOXAPARIN 100 MG/ML SYRINGE SUBCUT SCH (10:27)
[2022-10-27 12:09] VITALS: BP 133/74
== END 2022-10-27 15:25 | DRG 853 ==
LOC: EDUNIT# → EDBD → N.ED 13:43 → N.EDINP 18:00 → SUATTDRO 18:04 → N.CC 19:42 → N.3E 10-02 16:45
PROVIDERS: ADMIT Student in an Organized Health Care Education/Training Program; ATTEND Internal Medicine
PROC: EGDWPEG (ICD-10-PCS; 2022-10-14 08:35)

== ENCOUNTER 2022-10-28 17:11 | Inpatient (IN) ==
[2022-10-28 18:30] LABS: Basophils % 0.2 % (0.0-0.8); Eosinophils # 0.2 10*3/uL (0.0-0.87); Eosinophils % 1.7 % (0.00-10.9); Hematocrit 35.5 VOL% (42.0-52.0); Immature Granulocytes % 0.4 %; Immature Granulocytes Absolute 0.04 #; Lymphocytes # 2.6 10*3/uL (1.4-4.0); Lymphocytes % 27.6 % (21.2-54.2); Mean Corpuscular Volume 97.3 FL (87-102); Mean Platelet Volume 9.9 FL (9.6-12.0); Monocytes # 0.7 10*3/uL (0.11-0.8); Monocytes % 7.6 % (1.7-12.7); Neutrophils % 62.5 % (38.7-73.9); Platelet Count 461 T/CUMM (130-400); Red Blood Count 3.65 MC/CUMM (3.8-5.5); Red Cell Distribution Width 16.1 % (9.3-17.3); White Blood Count 9.6 T/CUMM (4-12)
[2022-10-28 18:58] LABS: Albumin 2.4 G/DL (3.4-5.0); Bilirubin,Total 0.4 MG/DL (0.20-1.00); Calcium 8.7 MG/DL (8.5-10.1); Osmolality,Calculated 291.7 MOS/KG (273-304); Total Protein 6.7 G/DL (6.4-8.2)
[2022-10-28] MEDS ORDERED: DEXTROSE 10% 250 ML BAG IV PRN (22:22)
[2022-10-28] MEDS ORDERED: SODIUM CHLORIDE 0.9% 1,000 ML IV SCH (22:30)
[2022-10-28] MEDS ORDERED: APIXABAN 5 MG TABLET PO SCH (22:45)
[2022-10-29] MEDS: ALBUTEROL/IPRATROPIUM 3 ML NEB RESP TX SCH ×4 (00:02→20:10)
[2022-10-29] MEDS: DOCUSATE SODIUM 100 MG/10 ML UDCUP PO SCH ×3 (00:11→21:18)
[2022-10-29] MEDS: OMEPRAZOLE ODT 20 MG TABLET PER TUBE SCH ×5 (00:12→21:18)
[2022-10-29 07:27] LABS: Basophils # 0.1 10*3/uL (0.0-0.2); Basophils % 0.6 % (0.0-0.8); Eosinophils # 0.1 10*3/uL (0.0-0.87); Eosinophils % 1.2 % (0.00-10.9); Hematocrit 33.4 VOL% (42.0-52.0); Hemoglobin 10.1 GM/DL (14.0-18.0); Immature Granulocytes % 0.6 %; Immature Granulocytes Absolute 0.05 #; Lymphocytes # 2.1 10*3/uL (1.4-4.0); Lymphocytes % 24.4 % (21.2-54.2); Mean Corpuscular HGB Conc 30.2 GM/DL (32-36); Mean Corpuscular Volume 97.7 FL (87-102); Mean Platelet Volume 9.5 FL (9.6-12.0); Monocytes # 0.6 10*3/uL (0.11-0.8); Monocytes % 6.9 % (1.7-12.7); Neutrophils % 66.3 % (38.7-73.9); Platelet Count 399 T/CUMM (130-400); Red Blood Count 3.42 MC/CUMM (3.8-5.5); Red Cell Distribution Width 16.2 % (9.3-17.3); White Blood Count 8.6 T/CUMM (4-12)
[2022-10-29] MEDS: INSULIN REGULAR 100 UNIT/ML SUBCUT SCH ×4 (07:54→22:10)
[2022-10-29 07:57] LABS: Albumin 1.9 G/DL (3.4-5.0); Bilirubin,Total 0.4 MG/DL (0.20-1.00); Calcium 8.5 MG/DL (8.5-10.1); Osmolality,Calculated 286.1 MOS/KG (273-304); Potassium 4.3 MMOL/L (3.5-5.1); Total Protein 6.3 G/DL (6.4-8.2)
[2022-10-29] MEDS: APIXABAN 5 MG TABLET PER TUBE SCH ×2 (09:36→21:18)
[2022-10-29] MEDS: ASPIRIN CHEW 81 MG TABLET PO SCH (09:36)
[2022-10-29] MEDS: DAPAGLIFLOZIN 10 MG TABLET PO SCH (09:37)
[2022-10-29] MEDS: ATORVASTATIN 80 MG TABLET PO SCH (09:37)
[2022-10-29] MEDS: INSULIN GLARGINE 100 UNIT/ML SUBCUT SCH (09:37)
[2022-10-29] MEDS: cycloSPORINE OPH EMUL 1 VIAL BOTH EYES SCH ×2 (09:37→23:23)
[2022-10-29] MEDS: ZINC OXIDE 16% PASTE 57 GM TUBE TOP SCH ×2 (09:43→21:18)
[2022-10-29] MEDS: MENTHOL/ZINC OXIDE OINT 71 GM JAR TOP SCH ×2 (09:43→22:10)
[2022-10-29 21:39] LABS: RBC,Urine 1 /HPF (0-4)
[2022-10-29 21:40] LABS: Protein,Urine Trace mg/dL (Negative); Urine Appearance Clear (Clear); Urine Color Yellow (Yellow); Urine pH 7.5 (4.5-8.0)
[2022-10-29 21:41] LABS: Bilirubin,Urine Negative (Negative); Blood, Urine Trace mg/dL (Negative); Glucose,Urine (UA) >=1000 mg/dL (Negative); Ketones,Urine Negative (Negative); Nitrite,Urine Negative (Negative); Urine Urobilinogen 0.2 eU/dL (<2.0)
[2022-10-29] MEDS: ACETAMINOPHEN 325 MG TABLET PER TUBE PRN (22:34)
[2022-10-30] MEDS: ALBUTEROL/IPRATROPIUM 3 ML NEB RESP TX SCH ×4 (00:55→20:40)
[2022-10-30 06:34] LABS: Basophils % 0.3 % (0.0-0.8); Eosinophils # 0.1 10*3/uL (0.0-0.87); Eosinophils % 0.9 % (0.00-10.9); Hematocrit 31.9 VOL% (42.0-52.0); Hemoglobin 9.7 GM/DL (14.0-18.0); Immature Granulocytes % 0.5 %; Immature Granulocytes Absolute 0.04 #; Lymphocytes % 23.4 % (21.2-54.2); Mean Corpuscular HGB Conc 30.4 GM/DL (32-36); Mean Corpuscular Volume 97.3 FL (87-102); Mean Platelet Volume 9.7 FL (9.6-12.0); Monocytes # 0.6 10*3/uL (0.11-0.8); Monocytes % 6.9 % (1.7-12.7); Platelet Count 452 T/CUMM (130-400); Red Blood Count 3.28 MC/CUMM (3.8-5.5); Red Cell Distribution Width 16.3 % (9.3-17.3); White Blood Count 8.6 T/CUMM (4-12)
[2022-10-30 06:50] LABS: Phosphorous 4.4 MG/DL (2.5-4.9)
[2022-10-30 07:01] LABS: Albumin 2.2 G/DL (3.4-5.0); Bilirubin,Total 0.4 MG/DL (0.20-1.00); Calcium 8.4 MG/DL (8.5-10.1); Osmolality,Calculated 291.7 MOS/KG (273-304); Potassium 3.9 MMOL/L (3.5-5.1); Total Protein 6.3 G/DL (6.4-8.2)
[2022-10-30] MEDS: INSULIN REGULAR 100 UNIT/ML SUBCUT SCH ×4 (07:36→21:00)
[2022-10-30] MEDS: OMEPRAZOLE ODT 20 MG TABLET PER TUBE SCH ×2 (08:55→20:58)
[2022-10-30] MEDS: ATORVASTATIN 80 MG TABLET PO SCH (08:55)
[2022-10-30] MEDS: DOCUSATE SODIUM 100 MG/10 ML UDCUP PO SCH ×2 (08:55→20:58)
[2022-10-30] MEDS: APIXABAN 5 MG TABLET PER TUBE SCH ×2 (08:55→20:59)
[2022-10-30] MEDS: DAPAGLIFLOZIN 10 MG TABLET PO SCH (08:55)
[2022-10-30] MEDS: ASPIRIN CHEW 81 MG TABLET PO SCH (08:55)
[2022-10-30] MEDS: ZINC OXIDE 16% PASTE 57 GM TUBE TOP SCH ×2 (08:59→20:59)
[2022-10-30] MEDS: MENTHOL/ZINC OXIDE OINT 71 GM JAR TOP SCH ×2 (08:59→21:00)
[2022-10-30] MEDS: INSULIN GLARGINE 100 UNIT/ML SUBCUT SCH (09:13)
[2022-10-30] MEDS: cycloSPORINE OPH EMUL 1 VIAL BOTH EYES SCH ×2 (09:13→20:59)
[2022-10-31] MEDS: ALBUTEROL/IPRATROPIUM 3 ML NEB RESP TX SCH ×4 (01:15→19:11)
[2022-10-31 07:46] LABS: Calcium 8.2 MG/DL (8.5-10.1); Potassium 4.3 MMOL/L (3.5-5.1)
[2022-10-31] MEDS: DAPAGLIFLOZIN 10 MG TABLET PO SCH (10:07)
[2022-10-31] MEDS: OMEPRAZOLE ODT 20 MG TABLET PER TUBE SCH ×2 (10:07→21:18)
[2022-10-31] MEDS: ASPIRIN CHEW 81 MG TABLET PO SCH (10:07)
[2022-10-31] MEDS: ATORVASTATIN 80 MG TABLET PO SCH (10:08)
[2022-10-31] MEDS: APIXABAN 5 MG TABLET PER TUBE SCH ×2 (10:08→21:17)
[2022-10-31] MEDS: INSULIN REGULAR 100 UNIT/ML SUBCUT SCH ×4 (10:08→21:18)
[2022-10-31] MEDS: INSULIN GLARGINE 100 UNIT/ML SUBCUT SCH (10:09)
[2022-10-31] MEDS: MENTHOL/ZINC OXIDE OINT 71 GM JAR TOP SCH ×2 (10:09→21:18)
[2022-10-31] MEDS: ZINC OXIDE 16% PASTE 57 GM TUBE TOP SCH ×2 (10:09→21:18)
[2022-10-31] MEDS: DOCUSATE SODIUM 100 MG/10 ML UDCUP PO SCH ×2 (10:09→21:17)
[2022-10-31] MEDS: cycloSPORINE OPH EMUL 1 VIAL BOTH EYES SCH ×2 (10:34→21:17)
[2022-11-01] MEDS: ALBUTEROL/IPRATROPIUM 3 ML NEB RESP TX SCH ×4 (00:18→20:03)
[2022-11-01 06:07] LABS: Basophils % 0.4 % (0.0-0.8); Eosinophils # 0.1 10*3/uL (0.0-0.87); Eosinophils % 0.8 % (0.00-10.9); Hematocrit 33.2 VOL% (42.0-52.0); Hemoglobin 10.4 GM/DL (14.0-18.0); Immature Granulocytes % 0.4 %; Immature Granulocytes Absolute 0.05 #; Lymphocytes # 2.3 10*3/uL (1.4-4.0); Mean Corpuscular HGB Conc 31.3 GM/DL (32-36); Mean Corpuscular Volume 97.6 FL (87-102); Mean Platelet Volume 9.7 FL (9.6-12.0); Monocytes # 0.8 10*3/uL (0.11-0.8); Monocytes % 6.9 % (1.7-12.7); Neutrophils % 71.5 % (38.7-73.9); Platelet Count 474 T/CUMM (130-400); Red Cell Distribution Width 16.6 % (9.3-17.3); White Blood Count 11.4 T/CUMM (4-12)
[2022-11-01 06:32] LABS: Calcium 8.6 MG/DL (8.5-10.1); Potassium 4.4 MMOL/L (3.5-5.1)
[2022-11-01] MEDS: DOCUSATE SODIUM 100 MG/10 ML UDCUP PO SCH ×2 (09:29→20:30)
[2022-11-01] MEDS: DAPAGLIFLOZIN 10 MG TABLET PO SCH (09:29)
[2022-11-01] MEDS: ASPIRIN CHEW 81 MG TABLET PO SCH (09:30)
[2022-11-01] MEDS: cycloSPORINE OPH EMUL 1 VIAL BOTH EYES SCH ×2 (09:30→20:30)
[2022-11-01] MEDS: INSULIN REGULAR 100 UNIT/ML SUBCUT SCH ×4 (09:30→21:13)
[2022-11-01] MEDS: ATORVASTATIN 80 MG TABLET PO SCH (09:30)
[2022-11-01] MEDS: OMEPRAZOLE ODT 20 MG TABLET PER TUBE SCH ×2 (09:30→20:31)
[2022-11-01] MEDS: APIXABAN 5 MG TABLET PER TUBE SCH ×2 (09:30→20:30)
[2022-11-01] MEDS: INSULIN GLARGINE 100 UNIT/ML SUBCUT SCH (09:30)
[2022-11-01] MEDS: ZINC OXIDE 16% PASTE 57 GM TUBE TOP SCH ×2 (09:31→20:30)
[2022-11-01] MEDS: MENTHOL/ZINC OXIDE OINT 71 GM JAR TOP SCH ×2 (09:31→20:30)
[2022-11-01] MEDS: ACETAMINOPHEN 325 MG TABLET PER TUBE PRN (20:31)
[2022-11-02] MEDS: ALBUTEROL/IPRATROPIUM 3 ML NEB RESP TX SCH ×4 (02:37→19:05)
[2022-11-02 05:29] LABS: Basophils # 0.1 10*3/uL (0.0-0.2); Basophils % 0.4 % (0.0-0.8); Eosinophils # 0.1 10*3/uL (0.0-0.87); Eosinophils % 0.9 % (0.00-10.9); Hematocrit 37.2 VOL% (42.0-52.0); Hemoglobin 11.2 GM/DL (14.0-18.0); Lymphocytes # 3.3 10*3/uL (1.4-4.0); Lymphocytes % 27.4 % (21.2-54.2); Mean Corpuscular HGB Conc 30.1 GM/DL (32-36); Mean Corpuscular Volume 101.1 FL (87-102); Mean Platelet Volume 9.9 FL (9.6-12.0); Monocytes # 0.8 10*3/uL (0.11-0.8); Monocytes % 6.8 % (1.7-12.7); Neutrophils % 64.1 % (38.7-73.9); Platelet Count 541 T/CUMM (130-400); Red Blood Count 3.68 MC/CUMM (3.8-5.5); Red Cell Distribution Width 16.6 % (9.3-17.3); White Blood Count 11.9 T/CUMM (4-12)
[2022-11-02] MEDS: ASPIRIN CHEW 81 MG TABLET PO SCH (09:37)
[2022-11-02] MEDS: cycloSPORINE OPH EMUL 1 VIAL BOTH EYES SCH ×2 (09:38→21:07)
[2022-11-02] MEDS: APIXABAN 5 MG TABLET PER TUBE SCH ×2 (09:38→21:06)
[2022-11-02] MEDS: DOCUSATE SODIUM 100 MG/10 ML UDCUP PO SCH ×2 (09:38→21:06)
[2022-11-02] MEDS: DAPAGLIFLOZIN 10 MG TABLET PO SCH (09:38)
[2022-11-02] MEDS: OMEPRAZOLE ODT 20 MG TABLET PER TUBE SCH ×2 (09:38→21:06)
[2022-11-02] MEDS: INSULIN REGULAR 100 UNIT/ML SUBCUT SCH ×4 (09:38→21:05)
[2022-11-02] MEDS: ATORVASTATIN 80 MG TABLET PO SCH (09:38)
[2022-11-02] MEDS: MENTHOL/ZINC OXIDE OINT 71 GM JAR TOP SCH ×2 (09:38→21:05)
[2022-11-02] MEDS: ZINC OXIDE 16% PASTE 57 GM TUBE TOP SCH ×2 (09:38→21:05)
[2022-11-02] MEDS: INSULIN GLARGINE 100 UNIT/ML SUBCUT SCH (09:39)
[2022-11-03] MEDS: ALBUTEROL/IPRATROPIUM 3 ML NEB RESP TX SCH ×2 (00:20→07:02)
[2022-11-03] MEDS: cycloSPORINE OPH EMUL 1 VIAL BOTH EYES SCH (09:53)
[2022-11-03] MEDS: DAPAGLIFLOZIN 10 MG TABLET PO SCH (09:53)
[2022-11-03] MEDS: DOCUSATE SODIUM 100 MG/10 ML UDCUP PO SCH (09:53)
[2022-11-03] MEDS: APIXABAN 5 MG TABLET PER TUBE SCH (09:53)
[2022-11-03] MEDS: OMEPRAZOLE ODT 20 MG TABLET PER TUBE SCH (09:54)
[2022-11-03] MEDS: ASPIRIN CHEW 81 MG TABLET PO SCH (09:54)
[2022-11-03] MEDS: ATORVASTATIN 80 MG TABLET PO SCH (09:54)
[2022-11-03] MEDS: MENTHOL/ZINC OXIDE OINT 71 GM JAR TOP SCH (09:54)
[2022-11-03] MEDS: ZINC OXIDE 16% PASTE 57 GM TUBE TOP SCH (09:54)
[2022-11-03] MEDS: INSULIN GLARGINE 100 UNIT/ML SUBCUT SCH (09:54)
[2022-11-03] MEDS: INSULIN REGULAR 100 UNIT/ML SUBCUT SCH (10:29)
[2022-11-03 11:23] VITALS: BP 128/76
[2022-11-04] MEDS ORDERED: APIXABAN 5 MG TABLET PER TUBE SCH (09:00)
== END 2022-11-03 12:17 | DRG 176 ==
LOC: N.ED 17:11 → N.EDINP 17:11 → N.3E 22:59 → SUATTDRO 10-30 16:37
PROVIDERS: ADMIT Internal Medicine; ATTEND Emergency Medicine

== ENCOUNTER 2022-11-08 20:06 | Inpatient (IN) ==
[2022-11-08] MEDS ORDERED: ALBUTEROL/IPRATROPIUM 3 ML NEB RESP TX STA (20:29)
[2022-11-08] MEDS ORDERED: ONDANSETRON 4 MG/2 ML VIAL IV STA (20:29)
[2022-11-08] MEDS ORDERED: methylPREDNISolone SOD SUC 125 MG/2 ML VIAL IV STA (20:29)
[2022-11-08] MEDS ORDERED: ALBUTEROL NEB SOLN 5 MG/ML 20 ML/BOTTLE CONT NEB SCH (20:30)
[2022-11-08] MEDS ORDERED: DILTIAZEM 50 MG/10 ML VIAL IV STA (20:54)
[2022-11-08] MEDS ORDERED: DILTIAZEM 25 MG/5 ML VIAL IV ONE (20:58)
[2022-11-08] MEDS ORDERED: DILTIAZEM 100 MG VIAL.ADD IV ONE (20:58)
[2022-11-08] MEDS: DILTIAZEM INJ 100 MG in SODIUM CHLORIDE 0.9% 100 ML IV SCH (21:04)
[2022-11-08 21:16] LABS: Basophils # 0.1 10*3/uL (0.0-0.2); Basophils % 0.3 % (0.0-0.8); Hematocrit 46.1 VOL% (42.0-52.0); Hemoglobin 13.7 GM/DL (14.0-18.0); Immature Granulocytes % 0.7 %; Immature Granulocytes Absolute 0.16 #; Lymphocytes # 4.6 10*3/uL (1.4-4.0); Mean Corpuscular HGB Conc 29.7 GM/DL (32-36); Mean Corpuscular Volume 100.7 FL (87-102); Monocytes # 1.6 10*3/uL (0.11-0.8); Monocytes % 6.9 % (1.7-12.7); NRBC # 0.03 10*3/uL; Neutrophils % 72.1 % (38.7-73.9); Platelet Count 422 T/CUMM (130-400); Red Blood Count 4.58 MC/CUMM (3.8-5.5); Red Cell Distribution Width 17.8 % (9.3-17.3); White Blood Count 23.2 T/CUMM (4-12)
[2022-11-08 21:17] LABS: ABG Base Excess -1.7 MMOL/L (-2.5-2.5); ABG HCO3 22.7 MMOL/L (20-26); ABG Oxygen Saturation 87.3 % (95-100); ABG PCO2 27.9 MM HG (35-48); ABG PH 7.474 (7.35-7.45); ABG TCO2 17.6 MMOL/L (23-27)
[2022-11-08] MEDS ORDERED: PIPERACILLIN/TAZOBACTAM 3,375 MG in SODIUM CHLORIDE 0.9% 100 ML IV STA (21:22)
[2022-11-08 21:28] LABS: Alanine Aminotransferase 34 U/L (16-61); Albumin 2.7 G/DL (3.4-5.0); Alkaline Phosphatase 105 U/L (45-117); Aspartate Amino Transferase 34 U/L (0-37); Blood Urea Nitrogen 46 MG/DL (7-18); Calcium 8.5 MG/DL (8.5-10.1); Carbon Dioxide 22 MMOL/L (21-32); Chloride 126 MMOL/L (98-107); Glucose 308 MG/DL (74-106); Osmolality,Calculated 332.2 MOS/KG (273-304); Potassium 4.7 MMOL/L (3.5-5.1); Sodium 156 MMOL/L (136-145)
[2022-11-08 21:35] LABS: INR 1.1; PT Patient Result 11.9 SECS (10.1-12.1); Partial Thromboplastin Time 24.7 SECS (23.7-32.9)
[2022-11-08] MEDS ORDERED: ALBUTEROL 2.5 MG/3 ML NEB RESP TX ONE (21:36)
[2022-11-08 21:37] LABS: Band Neutrophils 1 % (0-10); Lymphocytes 18 % (20-55); Total Cells Counted 100
[2022-11-08 21:38] LABS: Platelet Estimate Normal
[2022-11-08] MEDS ORDERED: ONDANSETRON 4 MG/2 ML VIAL IV PRN (23:08)
[2022-11-09] MEDS ORDERED: PIPERACILLIN/TAZOBACTAM 3,375 MG in SODIUM CHLORIDE 0.9% 100 ML IV STA (00:39)
[2022-11-09] MEDS: SODIUM CHLORIDE 0.45% 1,000 ML IV SCH ×4 (00:40→20:58)
[2022-11-09] MEDS: ALBUTEROL/IPRATROPIUM 3 ML NEB RESP TX SCH ×5 (01:00→23:45)
[2022-11-09 01:51] LABS: Hyaline Casts,Urine 1 /LPF (0-3); Mucus,Urine Occasional /LPF (Occasional); RBC,Urine 2 /HPF (0-4); Squamous Epithelial Cell,Urine Occasional /HPF (0-10)
[2022-11-09 01:52] LABS: Protein,Urine 30 mg/dL (Negative); Urine Appearance Clear (Clear); Urine Color Yellow (Yellow); Urine Specific Gravity 1.025 (1.001-1.035)
[2022-11-09 01:53] LABS: Bilirubin,Urine Negative (Negative); Blood, Urine Negative (Negative); Glucose,Urine (UA) >=1000 mg/dL (Negative); Ketones,Urine Trace mg/dL (Negative); Nitrite,Urine Negative (Negative); Urine Urobilinogen 0.2 eU/dL (<2.0)
[2022-11-09] MEDS: MORPHINE 2 MG/1 ML SYRINGE IV PRN ×2 (02:42→14:21)
[2022-11-09] MEDS: DILTIAZEM INJ 100 MG in SODIUM CHLORIDE 0.9% 100 ML IV SCH ×2 (04:21→10:19)
[2022-11-09 05:04] LABS: Albumin 2.8 G/DL (3.4-5.0); Bilirubin,Total 0.6 MG/DL (0.20-1.00); Calcium 8.9 MG/DL (8.5-10.1); Osmolality,Calculated 344.3 MOS/KG (273-304); Potassium 5.2 MMOL/L (3.5-5.1); Total Protein 7.1 G/DL (6.4-8.2)
[2022-11-09] MEDS ORDERED: SODIUM CHLORIDE 0.9% 1,000 ML IV STA (05:23)
[2022-11-09 06:01] LABS: Basophils % 0.2 % (0.0-0.8); Eosinophils % 0.1 % (0.00-10.9); Lymphocytes % 4.5 % (21.2-54.2); NRBC # 0.03 10*3/uL
[2022-11-09 06:27] LABS: Basophils # 0.1 10*3/uL (0.0-0.2); Eosinophils # 0.1 10*3/uL (0.0-0.87); Hematocrit 45.7 VOL% (42.0-52.0); Immature Granulocytes % 1.1 %; Immature Granulocytes Absolute 0.37 #; Lymphocytes # 1.5 10*3/uL (1.4-4.0); Mean Corpuscular HGB Conc 28.9 GM/DL (32-36); Mean Corpuscular Volume 103.6 FL (87-102); Mean Platelet Volume 11.7 FL (9.6-12.0); Monocytes # 1.9 10*3/uL (0.11-0.8); Monocytes % 5.6 % (1.7-12.7); Neutrophils % 88.5 % (38.7-73.9); Platelet Count 409 T/CUMM (130-400); Red Blood Count 4.41 MC/CUMM (3.8-5.5); Red Cell Distribution Width 17.4 % (9.3-17.3); White Blood Count 33.9 T/CUMM (4-12)
[2022-11-09 06:28] LABS: Hemoglobin 13.2 GM/DL (14.0-18.0)
[2022-11-09 06:31] LABS: Lymphocytes 5 % (20-55); Platelet Estimate Adequate; Total Cells Counted 100
[2022-11-09] MEDS ORDERED: SODIUM CHLORIDE 0.9% 1,700 ML IV ONE (06:37)
[2022-11-09] MEDS: INSULIN REGULAR 100 UNIT/ML SUBCUT SCH ×5 (07:39→22:35)
[2022-11-09 08:34] LABS: Arterial Base Excess iSTAT -7 MMOL/L (-2.5-2.5); Arterial O2 Saturation iSTAT 100 % (95-100); Arterial PCO2 iSTAT 29 MM HG (35-48); Arterial PO2 iSTAT 170 MM HG (80-95); Arterial Total CO2 iSTAT 18 MMO/L (23-27)
[2022-11-09] MEDS ORDERED: INSULIN REGULAR 100 UNIT/ML IV STA ×2 (09:57→11:23)
[2022-11-09] MEDS: PIPERACILLIN/TAZOBACTAM 3,375 MG in SODIUM CHLORIDE 0.9% 100 ML IV SCH ×2 (10:54→18:21)
[2022-11-09 11:02] LABS: Basophils # 0.1 10*3/uL (0.0-0.2); Basophils % 0.2 % (0.0-0.8); Immature Granulocytes % 0.7 %; Immature Granulocytes Absolute 0.21 #; Lymphocytes # 1.6 10*3/uL (1.4-4.0); Lymphocytes % 5.5 % (21.2-54.2); Mean Corpuscular HGB Conc 29.4 GM/DL (32-36); Mean Corpuscular Volume 103.6 FL (87-102); Mean Platelet Volume 11.4 FL (9.6-12.0); Monocytes # 1.2 10*3/uL (0.11-0.8); Monocytes % 4.1 % (1.7-12.7); Neutrophils % 89.5 % (38.7-73.9); Platelet Count 334 T/CUMM (130-400); Red Blood Count 3.88 MC/CUMM (3.8-5.5); Red Cell Distribution Width 17.2 % (9.3-17.3); White Blood Count 29.4 T/CUMM (4-12)
[2022-11-09 11:34] LABS: Band Neutrophils 12 % (0-10); Lymphocytes 6 % (20-55); Metamyelocytes 1 %; Nucleated Red Blood Cells 1 /100 WBC (0-5); Platelet Estimate Normal; Total Cells Counted 100
[2022-11-09 11:35] LABS: Anisocytosis 1+; Burr Cells Few; Ovalocytes Few; Tear Drop Cells Few
[2022-11-09 11:37] LABS: Macrocytosis 1+
[2022-11-09 11:44] LABS: Hematocrit 40.5 VOL% (42.0-52.0); Hemoglobin 11.9 GM/DL (14.0-18.0)
[2022-11-09 11:45] LABS: Albumin 2.3 G/DL (3.4-5.0); Bilirubin,Total 0.5 MG/DL (0.20-1.00); Calcium 8.1 MG/DL (8.5-10.1); Potassium 3.9 MMOL/L (3.5-5.1); Total Protein 6.3 G/DL (6.4-8.2)
[2022-11-09] MEDS: PANTOPRAZOLE 40 MG VIAL IV SCH (11:46)
[2022-11-09] MEDS: APIXABAN 5 MG TABLET PO SCH ×2 (11:46→22:25)
[2022-11-09] MEDS ORDERED: INSULIN GLARGINE 100 UNIT/ML SUBCUT ONE (16:00)
[2022-11-09 17:58] LABS: Albumin 2.5 G/DL (3.4-5.0); Bilirubin,Total 0.4 MG/DL (0.20-1.00); Calcium 8.9 MG/DL (8.5-10.1); Osmolality,Calculated 336.7 MOS/KG (273-304); Total Protein 6.6 G/DL (6.4-8.2)
[2022-11-09] MEDS ORDERED: DILTIAZEM 30 MG TABLET PO ONE ×2 (19:39→20:00)
[2022-11-09] MEDS: ATORVASTATIN 80 MG TABLET PEG SCH (22:25)
[2022-11-09] MEDS: DOCUSATE SODIUM 100 MG/10 ML UDCUP PEG SCH (22:25)
[2022-11-10] MEDS: PIPERACILLIN/TAZOBACTAM 3,375 MG in SODIUM CHLORIDE 0.9% 100 ML IV SCH ×3 (00:03→18:39)
[2022-11-10] MEDS: INSULIN REGULAR 100 UNIT/ML SUBCUT SCH ×6 (00:22→21:07)
[2022-11-10 01:09] LABS: Calcium 8.9 MG/DL (8.5-10.1); Osmolality,Calculated 329.6 MOS/KG (273-304); Potassium 3.7 MMOL/L (3.5-5.1)
[2022-11-10 01:25] LABS: Basophils # 0.1 10*3/uL (0.0-0.2); Basophils % 0.2 % (0.0-0.8); Hemoglobin 11.3 GM/DL (14.0-18.0); Immature Granulocytes % 1.6 %; Immature Granulocytes Absolute 0.49 #; Lymphocytes % 6.6 % (21.2-54.2); Mean Corpuscular HGB Conc 29.4 GM/DL (32-36); Mean Corpuscular Volume 103.2 FL (87-102); Mean Platelet Volume 11.3 FL (9.6-12.0); Monocytes % 3.4 % (1.7-12.7); NRBC # 0.02 10*3/uL; Neutrophils % 88.2 % (38.7-73.9); Platelet Count 283 T/CUMM (130-400); Red Blood Count 3.73 MC/CUMM (3.8-5.5); Red Cell Distribution Width 17.2 % (9.3-17.3); White Blood Count 30.5 T/CUMM (4-12)
[2022-11-10 01:27] LABS: Hematocrit 38.5 VOL% (42.0-52.0)
[2022-11-10 01:28] LABS: Lymphocytes 5 % (20-55); Platelet Estimate Adequate; Total Cells Counted 100
[2022-11-10 04:58] LABS: Calcium 9.1 MG/DL (8.5-10.1); Osmolality,Calculated 329.5 MOS/KG (273-304); Potassium 3.9 MMOL/L (3.5-5.1)
[2022-11-10] MEDS: SODIUM CHLORIDE 0.45% 1,000 ML IV SCH (06:30)
[2022-11-10] MEDS: ALBUTEROL/IPRATROPIUM 3 ML NEB RESP TX SCH ×3 (07:50→19:56)
[2022-11-10] MEDS: DOCUSATE SODIUM 100 MG/10 ML UDCUP PEG SCH ×2 (09:56→21:22)
[2022-11-10] MEDS: DILTIAZEM 60 MG TABLET PO SCH ×4 (09:56→21:21)
[2022-11-10] MEDS: ASPIRIN CHEW 81 MG TABLET PO SCH (09:56)
[2022-11-10] MEDS: APIXABAN 5 MG TABLET PO SCH ×2 (09:56→21:22)
[2022-11-10] MEDS: PANTOPRAZOLE 40 MG VIAL IV SCH (09:57)
[2022-11-10] MEDS: INSULIN GLARGINE 100 UNIT/ML SUBCUT SCH (10:14)
[2022-11-10] MEDS ORDERED: VANCOMYCIN INJ 1,000 MG in SODIUM CHLORIDE 0.9% 250 ML IV SCH (14:30)
[2022-11-10] MEDS: MENTHOL/ZINC OXIDE OINT 71 GM JAR TOP SCH ×2 (14:48→21:22)
[2022-11-10 15:27] LABS: Calcium 8.4 MG/DL (8.5-10.1); Osmolality,Calculated 328.3 MOS/KG (273-304); Potassium 3.7 MMOL/L (3.5-5.1)
[2022-11-10] MEDS: POTASSIUM CHLORIDE INJ 40 MEQ in DEXTROSE 5% 1,000 ML IV SCH (15:30)
[2022-11-10] MEDS: VANCOMYCIN INJ 1,250 MG in SODIUM CHLORIDE 0.9% 250 ML IV SCH (16:10)
[2022-11-10] MEDS: ATORVASTATIN 80 MG TABLET PEG SCH (21:22)
[2022-11-11] MEDS: INSULIN REGULAR 100 UNIT/ML SUBCUT SCH ×6 (01:44→21:43)
[2022-11-11] MEDS: POTASSIUM CHLORIDE INJ 40 MEQ in DEXTROSE 5% 1,000 ML IV SCH ×2 (01:46→15:33)
[2022-11-11] MEDS: PIPERACILLIN/TAZOBACTAM 3,375 MG in SODIUM CHLORIDE 0.9% 100 ML IV SCH ×3 (01:46→17:14)
[2022-11-11] MEDS: ALBUTEROL/IPRATROPIUM 3 ML NEB RESP TX SCH ×4 (02:45→20:09)
[2022-11-11] MEDS: VANCOMYCIN INJ 1,250 MG in SODIUM CHLORIDE 0.9% 250 ML IV SCH ×2 (04:03→15:36)
[2022-11-11 05:20] LABS: Phosphorous 2.4 MG/DL (2.5-4.9)
[2022-11-11 05:29] LABS: Bilirubin,Total 0.5 MG/DL (0.20-1.00); Calcium 8.1 MG/DL (8.5-10.1); Osmolality,Calculated 327.5 MOS/KG (273-304); Potassium 3.6 MMOL/L (3.5-5.1); Total Protein 5.3 G/DL (6.4-8.2)
[2022-11-11 05:57] LABS: Basophils # 0.1 10*3/uL (0.0-0.2); Basophils % 0.2 % (0.0-0.8); Eosinophils % 0.1 % (0.00-10.9); Immature Granulocytes % 2.2 %; Lymphocytes # 1.4 10*3/uL (1.4-4.0); Lymphocytes % 4.4 % (21.2-54.2); Mean Corpuscular HGB Conc 29.2 GM/DL (32-36); Mean Corpuscular Volume 103.6 FL (87-102); Mean Platelet Volume 11.8 FL (9.6-12.0); Monocytes # 0.5 10*3/uL (0.11-0.8); Monocytes % 1.6 % (1.7-12.7); NRBC # 0.02 10*3/uL; Neutrophils % 91.5 % (38.7-73.9); Platelet Count 232 T/CUMM (130-400); Red Blood Count 3.31 MC/CUMM (3.8-5.5); Red Cell Distribution Width 17.3 % (9.3-17.3); White Blood Count 32.1 T/CUMM (4-12)
[2022-11-11 06:02] LABS: Hematocrit 34.3 VOL% (42.0-52.0)
[2022-11-11 06:04] LABS: Band Neutrophils 4 % (0-10); Lymphocytes 2 % (20-55); Total Cells Counted 100
[2022-11-11 06:05] LABS: Macrocytosis 1+
[2022-11-11 06:06] LABS: Ovalocytes Slight
[2022-11-11 07:03] LABS: HIV Antigen/Antibody Result Nonreactive (Nonreactive); Hepatitis B Surface Ag Quant < 0.10 Index; Hepatitis B Surface Ag Result Non-Reactive (NonReactive); Hepatitis C Virus Ab Quant 0.08 Index; Hepatitis C Virus Ab Result Non-Reactive (NonReactive)
[2022-11-11] MEDS: INSULIN GLARGINE 100 UNIT/ML SUBCUT SCH (08:30)
[2022-11-11] MEDS: PANTOPRAZOLE 40 MG VIAL IV SCH (08:31)
[2022-11-11] MEDS: ASPIRIN CHEW 81 MG TABLET PO SCH (08:31)
[2022-11-11] MEDS: MENTHOL/ZINC OXIDE OINT 71 GM JAR TOP SCH ×2 (08:31→21:11)
[2022-11-11] MEDS: DOCUSATE SODIUM 100 MG/10 ML UDCUP PEG SCH ×2 (08:31→21:09)
[2022-11-11] MEDS: DILTIAZEM 60 MG TABLET PO SCH ×4 (08:31→21:10)
[2022-11-11] MEDS: APIXABAN 5 MG TABLET PO SCH ×2 (08:31→21:11)
[2022-11-11 09:12] LABS: % Iron Saturation 11.6 % (18-50); Ferritin 1406.3 ng/mL (26-388)
[2022-11-11 09:14] LABS: Folate 4.36 NG/ML (5.38-24.0)
[2022-11-11] MEDS: ATORVASTATIN 80 MG TABLET PEG SCH (21:09)
[2022-11-11] MEDS ORDERED: ACETAMINOPHEN 325 MG TABLET PEG PRN (23:54)
[2022-11-12] MEDS: PIPERACILLIN/TAZOBACTAM 3,375 MG in SODIUM CHLORIDE 0.9% 100 ML IV SCH ×3 (01:17→16:07)
[2022-11-12] MEDS: INSULIN REGULAR 100 UNIT/ML SUBCUT SCH ×7 (01:17→23:46)
[2022-11-12] MEDS: ALBUTEROL/IPRATROPIUM 3 ML NEB RESP TX SCH ×4 (01:21→19:20)
[2022-11-12] MEDS: VANCOMYCIN INJ 1,250 MG in SODIUM CHLORIDE 0.9% 250 ML IV SCH ×2 (04:37→21:13)
[2022-11-12] MEDS: POTASSIUM CHLORIDE INJ 40 MEQ in DEXTROSE 5% 1,000 ML IV SCH (04:38)
[2022-11-12 05:54] LABS: Basophils % 0.1 % (0.0-0.8); Eosinophils # 0.2 10*3/uL (0.0-0.87); Eosinophils % 0.9 % (0.00-10.9); Hematocrit 29.7 VOL% (42.0-52.0); Hemoglobin 8.7 GM/DL (14.0-18.0); Immature Granulocytes % 0.6 %; Immature Granulocytes Absolute 0.13 #; Lymphocytes # 1.4 10*3/uL (1.4-4.0); Lymphocytes % 5.8 % (21.2-54.2); Mean Corpuscular HGB Conc 29.3 GM/DL (32-36); Mean Corpuscular Volume 103.5 FL (87-102); Monocytes # 0.5 10*3/uL (0.11-0.8); Monocytes % 1.9 % (1.7-12.7); Neutrophils % 90.7 % (38.7-73.9); Platelet Count 196 T/CUMM (130-400); Red Blood Count 2.87 MC/CUMM (3.8-5.5); Red Cell Distribution Width 17.5 % (9.3-17.3); White Blood Count 23.4 T/CUMM (4-12)
[2022-11-12 06:22] LABS: Albumin 1.6 G/DL (3.4-5.0); Bilirubin,Total 0.4 MG/DL (0.20-1.00); Calcium 7.8 MG/DL (8.5-10.1); Osmolality,Calculated 318.2 MOS/KG (273-304); Total Protein 5.3 G/DL (6.4-8.2)
[2022-11-12 07:11] LABS: Band Neutrophils 7 % (0-10); Eosinophils 2 % (0-10); Lymphocytes 8 % (20-55); Platelet Estimate Normal; Total Cells Counted 100
[2022-11-12 07:12] LABS: Anisocytosis 1+; Macrocytosis 1+
[2022-11-12] MEDS: PANTOPRAZOLE 40 MG VIAL IV SCH (08:48)
[2022-11-12] MEDS: INSULIN GLARGINE 100 UNIT/ML SUBCUT SCH (08:51)
[2022-11-12] MEDS: FOLIC ACID 1 MG TABLET PEG SCH (08:52)
[2022-11-12] MEDS: APIXABAN 5 MG TABLET PO SCH ×2 (08:52→21:13)
[2022-11-12] MEDS: DOCUSATE SODIUM 100 MG/10 ML UDCUP PEG SCH ×2 (08:52→21:12)
[2022-11-12] MEDS: ASPIRIN CHEW 81 MG TABLET PO SCH (08:52)
[2022-11-12] MEDS: DILTIAZEM 60 MG TABLET PO SCH ×4 (08:52→21:12)
[2022-11-12] MEDS: MENTHOL/ZINC OXIDE OINT 71 GM JAR TOP SCH ×2 (08:53→21:12)
[2022-11-12] MEDS ORDERED: FERRIC GLUCONATE COMPLEX 125 MG in SODIUM CHLORIDE 0.9% 100 ML IV SCH (09:00)
[2022-11-12] MEDS: ATORVASTATIN 80 MG TABLET PEG SCH (21:13)
[2022-11-12] MEDS: FERRIC GLUCONATE COMPLEX 125 MG in SODIUM CHLORIDE 0.9% 100 ML IV SCH (22:31)
[2022-11-13] MEDS: ALBUTEROL/IPRATROPIUM 3 ML NEB RESP TX SCH ×4 (01:10→18:25)
[2022-11-13] MEDS: PIPERACILLIN/TAZOBACTAM 3,375 MG in SODIUM CHLORIDE 0.9% 100 ML IV SCH ×3 (01:22→16:48)
[2022-11-13] MEDS: INSULIN REGULAR 100 UNIT/ML SUBCUT SCH ×5 (04:30→21:00)
[2022-11-13 06:11] LABS: Osmolality,Calculated 312.3 MOS/KG (273-304); Potassium 4.2 MMOL/L (3.5-5.1)
[2022-11-13 06:31] LABS: Basophils % 0.1 % (0.0-0.8); Eosinophils # 0.3 10*3/uL (0.0-0.87); Hemoglobin 8.5 GM/DL (14.0-18.0); Immature Granulocytes % 0.6 %; Immature Granulocytes Absolute 0.09 #; Lymphocytes # 1.2 10*3/uL (1.4-4.0); Lymphocytes % 8.1 % (21.2-54.2); Mean Corpuscular HGB Conc 28.3 GM/DL (32-36); Mean Corpuscular Volume 107.1 FL (87-102); Mean Platelet Volume 12.1 FL (9.6-12.0); Monocytes # 0.5 10*3/uL (0.11-0.8); Monocytes % 3.2 % (1.7-12.7); Platelet Count 194 T/CUMM (130-400); Red Cell Distribution Width 17.2 % (9.3-17.3); White Blood Count 14.5 T/CUMM (4-12)
[2022-11-13 06:49] LABS: Anisocytosis 1+; Macrocytosis Slight; Platelet Estimate Normal; Spherocytes Few
[2022-11-13] MEDS: ASPIRIN CHEW 81 MG TABLET PO SCH (09:51)
[2022-11-13] MEDS: PANTOPRAZOLE 40 MG VIAL IV SCH (09:51)
[2022-11-13] MEDS: INSULIN GLARGINE 100 UNIT/ML SUBCUT SCH (09:51)
[2022-11-13] MEDS: DILTIAZEM 60 MG TABLET PO SCH ×4 (09:53→20:08)
[2022-11-13] MEDS: DOCUSATE SODIUM 100 MG/10 ML UDCUP PEG SCH ×2 (09:53→20:06)
[2022-11-13] MEDS: FOLIC ACID 1 MG TABLET PEG SCH (09:53)
[2022-11-13] MEDS: APIXABAN 5 MG TABLET PO SCH ×2 (09:53→20:08)
[2022-11-13] MEDS: MENTHOL/ZINC OXIDE OINT 71 GM JAR TOP SCH ×2 (09:54→20:08)
[2022-11-13] MEDS: VANCOMYCIN INJ 1,250 MG in SODIUM CHLORIDE 0.9% 250 ML IV SCH (15:05)
[2022-11-13] MEDS: ATORVASTATIN 80 MG TABLET PEG SCH (20:08)
[2022-11-13] MEDS: FERRIC GLUCONATE COMPLEX 125 MG in SODIUM CHLORIDE 0.9% 100 ML IV SCH (21:42)
[2022-11-14] MEDS: ALBUTEROL/IPRATROPIUM 3 ML NEB RESP TX SCH ×4 (00:25→19:47)
[2022-11-14] MEDS: PIPERACILLIN/TAZOBACTAM 3,375 MG in SODIUM CHLORIDE 0.9% 100 ML IV SCH ×3 (00:36→16:21)
[2022-11-14] MEDS: INSULIN REGULAR 100 UNIT/ML SUBCUT SCH ×6 (00:37→21:37)
[2022-11-14] MEDS: VANCOMYCIN INJ 1,250 MG in SODIUM CHLORIDE 0.9% 250 ML IV SCH ×3 (02:34→21:36)
[2022-11-14 05:47] LABS: Basophils % 0.2 % (0.0-0.8); Eosinophils # 0.4 10*3/uL (0.0-0.87); Eosinophils % 2.8 % (0.00-10.9); Hematocrit 30.5 VOL% (42.0-52.0); Immature Granulocytes % 1.3 %; Immature Granulocytes Absolute 0.17 #; Lymphocytes # 1.4 10*3/uL (1.4-4.0); Lymphocytes % 10.7 % (21.2-54.2); Mean Corpuscular HGB Conc 29.5 GM/DL (32-36); Mean Platelet Volume 11.6 FL (9.6-12.0); Monocytes # 0.5 10*3/uL (0.11-0.8); Monocytes % 4.2 % (1.7-12.7); NRBC # 0.03 10*3/uL; Neutrophils % 80.8 % (38.7-73.9); Platelet Count 225 T/CUMM (130-400); Red Blood Count 2.99 MC/CUMM (3.8-5.5); White Blood Count 12.9 T/CUMM (4-12)
[2022-11-14 06:08] LABS: Osmolality,Calculated 315.4 MOS/KG (273-304)
[2022-11-14 06:14] LABS: Platelet Estimate Normal
[2022-11-14 06:15] LABS: Anisocytosis 2+
[2022-11-14 06:32] LABS: Alanine Aminotransferase 50 U/L (16-61); Albumin 1.4 G/DL (3.4-5.0); Alkaline Phosphatase 125 U/L (45-117); Aspartate Amino Transferase 46 U/L (0-37); Bilirubin,Total < 0.39 MG/DL (0.20-1.00); Blood Urea Nitrogen 25 MG/DL (7-18); Calcium 7.6 MG/DL (8.5-10.1); Carbon Dioxide 22 MMOL/L (21-32); Chloride 126 MMOL/L (98-107); Glucose 215 MG/DL (74-106); Osmolality,Calculated 316.3 MOS/KG (273-304); Sodium 155 MMOL/L (136-145); Total Protein 5.8 G/DL (6.4-8.2)
[2022-11-14] MEDS: DOCUSATE SODIUM 100 MG/10 ML UDCUP PEG SCH ×2 (09:00→21:37)
[2022-11-14] MEDS: APIXABAN 5 MG TABLET PO SCH ×2 (09:00→21:37)
[2022-11-14] MEDS: FOLIC ACID 1 MG TABLET PEG SCH (09:00)
[2022-11-14] MEDS: ASPIRIN CHEW 81 MG TABLET PO SCH (09:01)
[2022-11-14] MEDS: DILTIAZEM 60 MG TABLET PO SCH ×4 (09:01→21:35)
[2022-11-14] MEDS: MENTHOL/ZINC OXIDE OINT 71 GM JAR TOP SCH ×2 (09:02→21:37)
[2022-11-14] MEDS: PANTOPRAZOLE 40 MG VIAL IV SCH (09:03)
[2022-11-14] MEDS: INSULIN GLARGINE 100 UNIT/ML SUBCUT SCH (09:03)
[2022-11-14] MEDS: DEXTROSE 5% 1,000 ML IV SCH (12:19)
[2022-11-14] MEDS: ATORVASTATIN 80 MG TABLET PEG SCH (21:37)
[2022-11-14] MEDS: FERRIC GLUCONATE COMPLEX 125 MG in SODIUM CHLORIDE 0.9% 100 ML IV SCH (23:00)
[2022-11-15] MEDS: ALBUTEROL/IPRATROPIUM 3 ML NEB RESP TX SCH ×4 (01:10→19:21)
[2022-11-15] MEDS: PIPERACILLIN/TAZOBACTAM 3,375 MG in SODIUM CHLORIDE 0.9% 100 ML IV SCH ×3 (01:19→16:03)
[2022-11-15] MEDS: INSULIN REGULAR 100 UNIT/ML SUBCUT SCH ×6 (03:57→21:24)
[2022-11-15 05:44] LABS: Basophils % 0.1 % (0.0-0.8); Eosinophils # 0.4 10*3/uL (0.0-0.87); Hematocrit 29.5 VOL% (42.0-52.0); Hemoglobin 8.8 GM/DL (14.0-18.0); Immature Granulocytes % 1.3 %; Immature Granulocytes Absolute 0.18 #; Lymphocytes # 1.7 10*3/uL (1.4-4.0); Lymphocytes % 12.6 % (21.2-54.2); Mean Corpuscular HGB Conc 29.8 GM/DL (32-36); Mean Corpuscular Volume 100.3 FL (87-102); Mean Platelet Volume 11.8 FL (9.6-12.0); Monocytes # 0.7 10*3/uL (0.11-0.8); Monocytes % 4.8 % (1.7-12.7); NRBC # 0.04 10*3/uL; Neutrophils % 78.2 % (38.7-73.9); Platelet Count 239 T/CUMM (130-400); Red Blood Count 2.94 MC/CUMM (3.8-5.5); White Blood Count 13.5 T/CUMM (4-12)
[2022-11-15 06:06] LABS: Eosinophils 6 % (0-10); Hypochromia Slight; Lymphocytes 7 % (20-55); Platelet Estimate Adequate; Total Cells Counted 100
[2022-11-15 06:13] LABS: Alanine Aminotransferase 45 U/L (16-61); Albumin 1.4 G/DL (3.4-5.0); Alkaline Phosphatase 115 U/L (45-117); Aspartate Amino Transferase 34 U/L (0-37); Bilirubin,Total < 0.39 MG/DL (0.20-1.00); Blood Urea Nitrogen 26 MG/DL (7-18); Calcium 8.2 MG/DL (8.5-10.1); Carbon Dioxide 23 MMOL/L (21-32); Chloride 127 MMOL/L (98-107); Glucose 163 MG/DL (74-106); Osmolality,Calculated 315.3 MOS/KG (273-304); Potassium 3.7 MMOL/L (3.5-5.1); Sodium 155 MMOL/L (136-145); Total Protein 5.7 G/DL (6.4-8.2)
[2022-11-15] MEDS: DEXTROSE 5% 1,000 ML IV SCH ×2 (07:42→08:58)
[2022-11-15] MEDS: APIXABAN 5 MG TABLET PO SCH ×2 (08:52→21:25)
[2022-11-15] MEDS: DILTIAZEM 60 MG TABLET PO SCH ×4 (08:52→21:26)
[2022-11-15] MEDS: PANTOPRAZOLE 40 MG VIAL IV SCH (08:52)
[2022-11-15] MEDS: ASPIRIN CHEW 81 MG TABLET PO SCH (08:52)
[2022-11-15] MEDS: FOLIC ACID 1 MG TABLET PEG SCH (08:52)
[2022-11-15] MEDS: DOCUSATE SODIUM 100 MG/10 ML UDCUP PEG SCH ×2 (08:53→21:25)
[2022-11-15] MEDS: INSULIN GLARGINE 100 UNIT/ML SUBCUT SCH (08:54)
[2022-11-15] MEDS: MENTHOL/ZINC OXIDE OINT 71 GM JAR TOP SCH ×2 (08:55→21:25)
[2022-11-15] MEDS: VANCOMYCIN INJ 1,250 MG in SODIUM CHLORIDE 0.9% 250 ML IV SCH (14:02)
[2022-11-15] MEDS: ATORVASTATIN 80 MG TABLET PEG SCH (21:25)
[2022-11-16] MEDS: FERRIC GLUCONATE COMPLEX 125 MG in SODIUM CHLORIDE 0.9% 100 ML IV SCH (01:07)
[2022-11-16] MEDS: ALBUTEROL/IPRATROPIUM 3 ML NEB RESP TX SCH ×4 (02:31→19:40)
[2022-11-16] MEDS: PIPERACILLIN/TAZOBACTAM 3,375 MG in SODIUM CHLORIDE 0.9% 100 ML IV SCH ×3 (02:37→16:46)
[2022-11-16] MEDS: DEXTROSE 5% 1,000 ML IV SCH (02:39)
[2022-11-16] MEDS: INSULIN REGULAR 100 UNIT/ML SUBCUT SCH ×5 (02:39→16:44)
[2022-11-16 05:51] LABS: Basophils % 0.3 % (0.0-0.8); Eosinophils # 0.4 10*3/uL (0.0-0.87); Hematocrit 27.6 VOL% (42.0-52.0); Hemoglobin 8.2 GM/DL (14.0-18.0); Immature Granulocytes % 1.2 %; Immature Granulocytes Absolute 0.17 #; Lymphocytes # 1.9 10*3/uL (1.4-4.0); Lymphocytes % 13.7 % (21.2-54.2); Mean Corpuscular HGB Conc 29.7 GM/DL (32-36); Mean Corpuscular Volume 100.7 FL (87-102); Mean Platelet Volume 11.6 FL (9.6-12.0); Monocytes # 0.6 10*3/uL (0.11-0.8); NRBC # 0.04 10*3/uL; Neutrophils % 77.8 % (38.7-73.9); Platelet Count 247 T/CUMM (130-400); Red Blood Count 2.74 MC/CUMM (3.8-5.5); Red Cell Distribution Width 17.2 % (9.3-17.3); White Blood Count 14.1 T/CUMM (4-12)
[2022-11-16 06:09] LABS: Calcium 7.9 MG/DL (8.5-10.1); Osmolality,Calculated 310.9 MOS/KG (273-304)
[2022-11-16 06:19] LABS: Eosinophils 2 % (0-10); Lymphocytes 10 % (20-55); Total Cells Counted 100
[2022-11-16 06:20] LABS: Anisocytosis 1+; Platelet Estimate Normal; Polychromasia Slight
[2022-11-16] MEDS: MENTHOL/ZINC OXIDE OINT 71 GM JAR TOP SCH ×2 (09:40→21:38)
[2022-11-16] MEDS: DOCUSATE SODIUM 100 MG/10 ML UDCUP PEG SCH ×2 (09:40→21:28)
[2022-11-16] MEDS: DILTIAZEM 60 MG TABLET PO SCH ×4 (09:40→21:28)
[2022-11-16] MEDS: ASPIRIN CHEW 81 MG TABLET PO SCH (09:40)
[2022-11-16] MEDS: PANTOPRAZOLE 40 MG VIAL IV SCH (09:41)
[2022-11-16] MEDS: INSULIN GLARGINE 100 UNIT/ML SUBCUT SCH (09:41)
[2022-11-16] MEDS: APIXABAN 5 MG TABLET PO SCH ×2 (09:41→21:28)
[2022-11-16] MEDS: FOLIC ACID 1 MG TABLET PEG SCH (09:41)
[2022-11-16] MEDS: VANCOMYCIN INJ 1,250 MG in SODIUM CHLORIDE 0.9% 250 ML IV SCH (09:42)
[2022-11-16 19:29] LABS: Bacteria,Urine Occasional /HPF (Few); Mucus,Urine Occasional /LPF (Occasional); RBC,Urine <1 /HPF (0-4)
[2022-11-16 20:38] LABS: Bilirubin,Urine Negative (Negative); Blood, Urine Trace mg/dL (Negative); Glucose,Urine (UA) 100 mg/dL (Negative); Ketones,Urine Negative (Negative); Nitrite,Urine Negative (Negative); Protein,Urine 30 mg/dL (Negative); Urine Appearance Clear (Clear); Urine Color Yellow (Yellow); Urine Urobilinogen 0.2 eU/dL (<2.0)
[2022-11-16] MEDS: ATORVASTATIN 80 MG TABLET PEG SCH (21:28)
[2022-11-17] MEDS: FERRIC GLUCONATE COMPLEX 125 MG in SODIUM CHLORIDE 0.9% 100 ML IV SCH (00:30)
[2022-11-17] MEDS: DEXTROSE 5% 1,000 ML IV SCH (00:30)
[2022-11-17] MEDS: ALBUTEROL/IPRATROPIUM 3 ML NEB RESP TX SCH ×2 (00:50→06:54)
[2022-11-17] MEDS: DESITIN 4OZ/NYSTATIN 15 GRAM MIXTURE PASTE TOP SCH ×2 (01:23→09:26)
[2022-11-17] MEDS: PIPERACILLIN/TAZOBACTAM 3,375 MG in SODIUM CHLORIDE 0.9% 100 ML IV SCH ×2 (01:50→09:25)
[2022-11-17 05:32] LABS: Basophils % 0.2 % (0.0-0.8); Eosinophils # 0.3 10*3/uL (0.0-0.87); Eosinophils % 2.3 % (0.00-10.9); Hemoglobin 8.2 GM/DL (14.0-18.0); Immature Granulocytes % 0.9 %; Immature Granulocytes Absolute 0.13 #; Lymphocytes # 1.8 10*3/uL (1.4-4.0); Lymphocytes % 12.5 % (21.2-54.2); Mean Corpuscular HGB Conc 30.4 GM/DL (32-36); Mean Corpuscular Volume 100.7 FL (87-102); Mean Platelet Volume 11.5 FL (9.6-12.0); Monocytes # 0.5 10*3/uL (0.11-0.8); Monocytes % 3.5 % (1.7-12.7); NRBC # 0.02 10*3/uL; Neutrophils % 80.6 % (38.7-73.9); Platelet Count 241 T/CUMM (130-400); Red Blood Count 2.68 MC/CUMM (3.8-5.5); Red Cell Distribution Width 16.9 % (9.3-17.3); White Blood Count 14.1 T/CUMM (4-12)
[2022-11-17 06:01] LABS: Calcium 7.5 MG/DL (8.5-10.1); Potassium 4.1 MMOL/L (3.5-5.1)
[2022-11-17] MEDS: INSULIN REGULAR 100 UNIT/ML SUBCUT SCH ×5 (06:24→12:15)
[2022-11-17] MEDS: DOCUSATE SODIUM 100 MG/10 ML UDCUP PEG SCH (09:24)
[2022-11-17] MEDS: PANTOPRAZOLE 40 MG VIAL IV SCH (09:24)
[2022-11-17] MEDS: ASPIRIN CHEW 81 MG TABLET PO SCH (09:25)
[2022-11-17] MEDS: FOLIC ACID 1 MG TABLET PEG SCH (09:25)
[2022-11-17] MEDS: APIXABAN 5 MG TABLET PO SCH (09:25)
[2022-11-17] MEDS: DILTIAZEM 60 MG TABLET PO SCH (09:25)
[2022-11-17] MEDS: MENTHOL/ZINC OXIDE OINT 71 GM JAR TOP SCH (09:26)
[2022-11-17] MEDS: INSULIN GLARGINE 100 UNIT/ML SUBCUT SCH (10:17)
[2022-11-17 11:38] VITALS: BP 132/71
== END 2022-11-17 12:10 | disposition hospice, inpatient (51) | DRG 871 ==
LOC: EDUNIT# → EDBD → N.ED 20:06 → N.EDINP 23:08 → N.2E 23:08 → SUATTDRO 23:08 → N.EDINP 11-09 00:38 → N.2E 11-09 01:18 → N.3E 11-09 22:53
PROVIDERS: ADMIT Internal Medicine; ATTEND Internal Medicine